=== PATIENT | female | born 1990 | race Caucasian/White ===

== ENCOUNTER 2021-05-29 01:49 | Inpatient (IN) | payer MEDICAID ==
[2021-05-29] VITALS (10 sets, daily range): BP systolic 99–129; BP diastolic 55–65
[~2021-05-29] VITALS: Ht 170.2 cm; Wt 95.4 kg
[2021-05-29] MEDS ORDERED: LIDOCAINE 1% MDV 20ML VIAL INFIL PRN (01:55)
[2021-05-29] MEDS ORDERED: AZITHROMYCIN 250MG TABLET PO ONE (01:55)
[2021-05-29] MEDS ORDERED: diphenhydrAMINE 25MG CAP PO PRN (01:55)
[2021-05-29] MEDS ORDERED: METHYLERGONOVINE MALEATE 0.2 MG/ML VIAL (J2210) IM PRN (01:55)
[2021-05-29] MEDS ORDERED: ONDANSETRON 4MG/2ML VIAL IV PRN (01:55)
[2021-05-29] MEDS ORDERED: OXYTOCIN DRIP 30 UNITS in IV 1 EA IV PRN (01:55)
--- OUTSIDE RECORDS SUMMARY | 2021-05-29 02:07 | CCD ---
Author Author [facility] Organization [facility] Address Unknown Phone Unavailable Care Team Providers Care Guide Foreign Tour Name Role Phone DICOBY, TEDDY DO Unavailable Unavailable DICOBY, TEDDY DO Unavailable Unavailable DICOBY, TEDDY DO Unavailable Unavailable DICOBY, TEDDY DO Unavailable Unavailable DICOBY, TEDDY DO Unavailable Unavailable DICOBY, TEDDY DO Unavailable Unavailable DICOBY, TEDDY DO Unavailable Unavailable DICOBY, TEDDY DO Unavailable Unavailable DICOBY, TEDDY DO Unavailable Unavailable DICOBY, TEDDY DO Unavailable Unavailable DICOBY, TEDDY DO Unavailable Unavailable DICOBY, TEDDY DO Unavailable Unavailable DICOBY, TEDDY DO Unavailable Unavailable DICOBY, TEDDY DO Unavailable Unavailable DICOBY, TEDDY DO Unavailable Unavailable DICOBY, TEDDY DO Unavailable Unavailable DICOBY, TEDDY DO Unavailable Unavailable DICOBY, TEDDY DO Unavailable Unavailable DICOBY, TEDDY DO Unavailable Unavailable DICOBY, TEDDY DO Unavailable Unavailable DICOBY, TEDDY DO Unavailable Unavailable Gagner, CNM E Alida Unavailable [phone] Gagner, CNM E Alida Unavailable [phone] Gagner, CNM E Alida Unavailable [phone] Gagner, CNM E Alida Unavailable [phone] Gagner, CNM E Alida Unavailable [phone] PHI aMnrique Unavailable Unavailable O'Olamide, Chemo MD Unavailable Unavailable LINO STRAUSS MD Unavailable Unavailable LINO STRAUSS MD Unavailable Unavailable LINO STRAUSS MD Unavailable Unavailable LINO STRAUSS MD Unavailable Unavailable LINO STRAUSS MD Unavailable Unavailable LINO STRAUSS MD Unavailable Unavailable LINO STRAUSS MD Unavailable Unavailable LINO STRAUSS MD Unavailable Unavailable LINO STRAUSS MD Unavailable Unavailable LINO STRAUSS MD Unavailable Unavailable LINO STRAUSS MD Unavailable Unavailable LINO STRAUSS MD Unavailable Unavailable LINO STRAUSS MD Unavailable Unavailable LINO STRAUSS MD Unavailable Unavailable LINO STRAUSS MD Unavailable Unavailable LINO STRAUSS MD Unavailable Unavailable LINO STRAUSS MD Unavailable Unavailable LINO STRAUSS MD Unavailable Unavailable LINO STRAUSS MD Unavailable Unavailable LINO STRAUSS MD Unavailable Unavailable MICHELLE HOLLINS MD Unavailable Unavailable HOLLINS, MICHELLE MD Unavailable Unavailable HOLLINSMICHELLE MD Unavailable Unavailable HOLLINSMICHELLE MD Unavailable Unavailable HOLLINS, MICHELLE MD Unavailable Unavailable HOLLINS, MICHELLE MD Unavailable Unavailable HOLLINS, MICHELLE MD Unavailable Unavailable HOLLINS, MICHELLE MD Unavailable Unavailable HOLLINS, MICHELLE MD Unavailable Unavailable HOLLINS, MICHELLE MD Unavailable Unavailable HOLLINS, MICHELLE MD Unavailable Unavailable HOLLINS, MICHELLE MD Unavailable Unavailable HOLLINS, MICHELLE MD Unavailable Unavailable HOLLINS, MICHELLE MD Unavailable Unavailable HOLLINS, MICHELLE MD Unavailable Unavailable Grimshaw, Maggie Unavailable Unavailable Grimshaw, Maggie Unavailable Unavailable Grimshaw, Maggie Unavailable Unavailable Grimshaw, Maggie Unavailable Unavailable Grimshaw, Maggie Unavailable Unavailable Grimshaw, Maggie Unavailable Unavailable Grimshaw, Maggie Unavailable Unavailable Grimshaw, Maggie Unavailable Unavailable Grimshaw, Maggie Unavailable Unavailable Grimshaw, Maggie Unavailable Unavailable Grimshaw, Maggie Unavailable Unavailable Grimshaw, Maggie Unavailable Unavailable Grimshaw, Maggie Unavailable Unavailable Grimshaw, Maggie Unavailable Unavailable Grimshaw, Maggie Unavailable Unavailable Grimshaw, Maggie Unavailable Unavailable Grimshaw, Maggie Unavailable Unavailable Grimshaw, Maggie Unavailable Unavailable Grimshaw, Maggie Unavailable Unavailable Grimshaw, Maggie Unavailable Unavailable Grimshaw, Maggie Unavailable Unavailable Grimshaw, Maggie Unavailable Unavailable Grimshaw, Maggie Unavailable Unavailable Grimshaw, Maggie Unavailable Unavailable Grimshaw, Maggie Unavailable Unavailable Grimshaw, Maggie Unavailable Unavailable Grimshaw, Maggie Unavailable Unavailable Grimshaw, Maggie Unavailable Unavailable Grimshaw, Maggie Unavailable Unavailable Grimshaw, Maggie Unavailable Unavailable Grimshaw, Maggie Unavailable Unavailable Grimshaw, Maggie Unavailable Unavailable Grimshaw, Maggie Unavailable Unavailable Grimshaw, Maggie Unavailable Unavailable ERIC ISFABRICE FRIAS MD Unavailable Unavailable ERIC ISMABRONWYN FRIAS MD Unavailable Unavailable ERIC, ISMAIL LV GRULLON Unavailable Unavailable ERIC ISMAIL LV GRULLON Unavailable Unavailable LETICIAAH, ISMAIL LV GRULLON Unavailable Unavailable LETICIAAH, ISMAIL VL GRULLON Unavailable Unavailable LETICIAAH, ISMAIL LV GRULLON Unavailable Unavailable ERIC, ISMAIL LV GRULLON Unavailable Unavailable ERIC, ISMAIL LV GRULLON Unavailable Unavailable ERIC ISMAIL LV GRULLON Unavailable Unavailable ERIC ISMAIL LV GRULLON Unavailable Unavailable ERIC, ISMAIL LV GRULLON Unavailable Unavailable POLNIAK, OLGA ENGINE LATHE OPERATOR Unavailable Unavailable POLNIAK, OLGA ENGINE LATHE OPERATOR Unavailable Unavailable POLNIAK, OLGA ENGINE LATHE OPERATOR Unavailable Unavailable POLNIAK, OLGA ENGINE LATHE OPERATOR Unavailable Unavailable POLNIAK, OLGA ENGINE LATHE OPERATOR Unavailable Unavailable POLNIAK, OLGA ENGINE LATHE OPERATOR Unavailable Unavailable POLNIAK, OLGA ENGINE LATHE OPERATOR Unavailable Unavailable POLNIAK, OLGA ENGINE LATHE OPERATOR Unavailable Unavailable POLNIAK, OLGA ENGINE LATHE OPERATOR Unavailable Unavailable POLNIAK, OLGA ENGINE LATHE OPERATOR Unavailable Unavailable POLNIAK, OLGA ENGINE LATHE OPERATOR Unavailable Unavailable POLNIAK, OLGA ENGINE LATHE OPERATOR Unavailable Unavailable POLNIAK, OLGA ENGINE LATHE OPERATOR Unavailable Unavailable POLNIAK, OLGA ENGINE LATHE OPERATOR Unavailable Unavailable POLNIAK, OLGA ENGINE LATHE OPERATOR Unavailable Unavailable POLNIAK, OLGA ENGINE LATHE OPERATOR Unavailable Unavailable Mireya Bui MD Unavailable Unavailable Mireya Bui MD Unavailable Unavailable Mireya Bui MD Unavailable Unavailable Mireya Bui MD Unavailable Unavailable Mireya Bui MD Unavailable Unavailable Mireya Bui MD Unavailable Unavailable Mireya Bui MD Unavailable Unavailable Mireya Bui MD Unavailable Unavailable Mireya Bui MD Unavailable Unavailable Mireya Bui MD Unavailable Unavailable Mireya Bui MD Unavailable Unavailable Mireya Bui MD Unavailable Unavailable Mireya Bui MD Unavailable Unavailable Mireya Bui MD Unavailable Unavailable Leykin, Douglas DO Unavailable Unavailable Sienkiewycz, L Marj ENGINE LATHE OPERATOR Unavailable Unavailable Sienkiewycz, L Marj ENGINE LATHE OPERATOR Unavailable Unavailable Sienkiewycz, L Marj ENGINE LATHE OPERATOR Unavailable Unavailable Sienkiewycz, L Marj ENGINE LATHE OPERATOR Unavailable Unavailable Sienkiewycz, L Marj ENGINE LATHE OPERATOR Unavailable Unavailable Sienkiewycz, L Marj ENGINE LATHE OPERATOR Unavailable Unavailable Sienkiewycz, L Marj ENGINE LATHE OPERATOR Unavailable Unavailable Glo Vogel M.D. Unavailable Unavailable Thalia Robbins Unavailable Unavailable Thalia Robbins Unavailable Unavailable Thalia Robbins Unavailable Unavailable Chemo Benz MD Unavailable [phone] Chemo Benz MD Unavailable [phone] Chemo Bezn MD Unavailable [phone] Chemo Benz MD Unavailable [phone] Chemo Benz MD Unavailable [phone] Chemo Benz MD Unavailable [phone] Chemo Benz MD Unavailable [phone] Chemo Benz MD Unavailable [phone] Hanane MÉNDEZ MD Unavailable Unavailable DEVHanane BACA MD Unavailable Unavailable DEVHanane BACA MD Unavailable Unavailable DEVHanane BACA MD Unavailable Unavailable DEVHanane BACA MD Unavailable Unavailable DEVHanane BACA MD Unavailable Unavailable DEVHanane BACA MD Unavailable Unavailable DEVHanane BACA MD Unavailable Unavailable DEVHanane BACA MD Unavailable Unavailable DEVHanane BACA MD Unavailable Unavailable DEVHanane BACA MD Unavailable Unavailable DEVHanane BACA MD Unavailable Unavailable DEVHanane BACA MD Unavailable Unavailable DEVHanane BACA MD Unavailable Unavailable DEVHanane BACA MD Unavailable Unavailable DEVHanane BACA MD Unavailable Unavailable DEVHanane BACA MD Unavailable Unavailable DEVHanane BACA MD Unavailable Unavailable DEVHanane BACA MD Unavailable Unavailable DEVHanane BACA MD Unavailable Unavailable DEVHanane BACA MD Unavailable Unavailable DEVHanane BACA MD Unavailable Unavailable DEVHanane BACA MD Unavailable Unavailable BROUGHAL, C JUNIOR PA Unavailable Unavailable BROUGHAL, C JUNIOR PA Unavailable Unavailable BROUGHAL, C JUNIOR PA Unavailable Unavailable BROUGHAL, C JUNIOR PA Unavailable Unavailable BROUGHAL, C JUNIOR PA Unavailable Unavailable BROUGHAL, C JUNIOR PA Unavailable Unavailable Miglietta, C Lorenzo PA Unavailable Unavailable Miglietta, C Lorenzo PA Unavailable Unavailable Miglietta, C Lorenzo PA Unavailable Unavailable LemayrainNikkyl DO Unavailable Unavailable Re-disclosure Warning The records that you are about to access may contain information from federally-assisted alcohol or drug abuse programs. If such information is present, then the following federally mandated warning applies: This information has been disclosed to you from records protected by federal confidentiality rules (42 CFR part 2). The federal rules prohibit you from making any further disclosure of this information unless further disclosure is expressly permitted by the written consent of the person to whom it pertains or as otherwise permitted by 42 CFR part 2. A general authorization for the release of medical or other information is NOT sufficient for this purpose. The Federal rules restrict any use of the information to criminally investigate or prosecute any alcohol or drug abuse patient.The records that you are about to access may contain highly sensitive health information, the redisclosure of which is protected by Article 27-F of the [facility] Public Health law. If you continue you may have access to information: Regarding HIV / AIDS; Provided by facilities licensed or operated by the [facility] Office of Mental Health; or Provided by the [facility] Office for People With Developmental Disabilities. If such information is present, then the following [facility] mandated warning applies: This information has been disclosed to you from confidential records which are protected by state law. State law prohibits you from making any further disclosure of this information without the specific written consent of the person to whom it pertains, or as otherwise permitted by law. Any unauthorized further disclosure in violation of state law may result in a fine or care home sentence or both. A general authorization for the release of medical or other information is NOT sufficient authorization for further disc losure. Allergies and Adverse Reactions Type Description Substance Reaction Status Data Source(s ) Drug allergy Drug allergy hydromorphone (From Dilaudid) Vomit [facility] Family History Family Member Name Family Member Gender Family Member Status Date o f Status Description Data Source(s) Unknown Male Problem MEDENT (Cristiane Olvera MD) Encounters Encounter Providers Location Date Indications Data Source(s ) Inpatient Attender: LINO STRAUSS MDAdmitter: LINO STRAUSS MD CPSCAORT-OB 05/28/2021 08:37:00 PM EST [facility] Patient admitted. Outpatient Attender: LV REYES MD CPSCAJORGE-CPSLAOBG 08:34:00 AM EST - 05/14/2021 08:35:00 AM EST [facility] Patient discharged. Outpatient Attender: LINO NAYLORCAORT-OBOUT 2020 08:51:00 AM EDT - 05/03/2021 08:52:00 AM EDT T [facility] NST Patient discharged. Outpatient Attender: LV REYES MD CPSLEWIS-CPSLAOBG 10:22:00 AM EDT - 04/28/2021 10:23:00 AM EDT [facility] Patient discharged. Outpatient Attender: LV REYES MD CPSCAORT-LABPD 04/03 09:24:00 AM EDT - 04/21/2021 09:25:00 AM EDT Z98.891; O26.22; Z87.51; O09.899 [facility] Z98.891; O26.22; Z87.51; O09.899 Patient discharged. Outpatient Attender: LV REYES MD CPSCAJORGE-OBOUT 04/02 10:16:00 AM EDT - 04/20/2021 10:17:00 AM EDT T [facility] NST Patient discharged. Outpatient Attender: LV NAYLORCAJORGE-LABPD 01/2021 12:49:00 PM EDT - 04/09/2021 12:50:00 PM EDT GLUCOSE MONITORING [facility] GLUCOSE MONITORING Patient discharged. Outpatient Attender: LV NAYLORCAJORGE-CPSLAOBG 09:55:00 AM EDT - 04[facility]07[facility] Attender: TEDDY PATRICIA DO CPSCAORT-OBOUT 03/04 03:47:00 PM EDT - 03/30/2021 03:48:00 PM EDT NST [facility] NST Patient discharged. Outpatient Attender: KIKO Garcia CPSCAORT-CPSLAOBG 01:32:00 PM EDT - 03/23/2021 01:33:00 PM EDT [facility] Patient discharged. Outpatient Attender: LV REYES MD CPSCAORT-IMAPD 03/03 11:55:00 AM EDT - 03/19/2021 11:56:00 AM EDT FOLLOW UP [facility] FOLLOW UP Patient discharged. Outpatient Attender: MICHELLE HOLLINS MD SURG-NPLAB 03/09/2021 01:49:00 PM EDT [facility]. Outpatient Attender: LV REYES MD CPSCAORT-CPSLAOBG 10:35:00 AM EDT - 03/02/2021 10:36:00 AM EDT Z3A.20, Z87.51, O09.899, Z98.891, N96, K21.9 [facility] Z3A.20, Z87.51, O09.899, Z98.891, N96, K 21.9 Patient discharged. Outpatient Attender: LV REYES MD CPSCAJORGE-IMAPArturo 02/01 04:50:00 PM EDT - 02/19/2021 04:51:00 PM EDT ANATOMY [facility] ANATOMY Patient discharged. Outpatient Attender: LV REYES MD CPSCAORT-CPSLAOBG 01:59:00 PM EDT - 02/02/2021 02:00:00 PM EDT O21.9,Z87.51,O09.899,Z98.891,N96,K21.9 [facility] O21.9,Z87.51,O09.899,Z98.891,N96,K21.9 Patient discharged. Outpatient Attender: LV KELLEY-CPSLAOBG 02:32:00 PM EDT - 01/05/2021 02:33:00 PM EDT O20.0,Z87.51,O09.899,Z13.79 [facility] O20.0,Z87.51,O09.899,Z13.79 Patient discharged. Outpatient Attender: LV KELLEY-CPSLAOBG 07:54:00 AM EDT - 12/18/2020 07:55:00 AM EDT TAB,O20.0,Z3A.09,Z87.51,O09.899,Z98.891 [facility] TAB,O20.0,Z3A.09,Z87.51,O09.899,Z98.891 Patient discharged. Outpatient Attender: LV KELLEY-CPSLAOBG 01:48:00 PM EDT - 12/15/2020 01:49:00 PM EDT [facility] Patient discharged. Outpatient Attender: OLGA KELLEY-IMAPD 08/2020 04:54:00 PM EDT - 12/03/2020 04:55:00 PM EDT DATING & VIABILITY [facility] DATING & VIABILITY Patient discharged. Outpatient Attender: Maggie KELLEY-CPSLAPCP 08/2020 01:53:00 PM EDT - 12/03/2020 01:54:00 PM EDT [facility] Patient discharged. Outpatient Attender: LV KELLEY-LABLAW 11/01 09:38:00 AM EDT - 11/26/2020 09:39:00 AM EDT N91.2 [facility] N91.2 Patient discharged. Emergency Attender: Maricel Vogel M.D. SURG-ER 0 11/19/2020 06:13:00 PM EDT - 11/19/2020 08:40:00 PM EDT [facility] Emergency Attender: Maricel Vogel M.D. SURG-ER 11/19/2020 06:13 :00 PM EDT [facility] Patient discharged. Outpatient Attender: PHI Dodd: OLGA URBINA NP CPSCAORT-CPSLAOBG 11/18/2020 11:23:00 AM EDT - 11/18/2020 11:24:00 AM ED T Z3A.01 [facility] Z3A.01 Patient discharged. Outpatient Attender: LV PIERRELAB 10/31 08:44:00 AM EDT - 11/11/2020 08:45:00 AM EDT N91.2 [facility] N91.2 Patient discharged. Outpatient Attender: LV THORNE 10/31 09:52:00 AM EDT - 11/09/2020 09:53:00 AM EDT N91.2 [facility] N91.2 Patient discharged. Outpatient Attender: LV REYES MD CPSCAJORGE-CPSLAOBG 10:53:00 AM EDT - 10/16/2020 10:54:00 AM EDT [facility] Patient discharged. Outpatient Attender: Deirdre ORO CPSCAORT-CPSLAUCC 01:09:00 PM EDT - 10/06/2020 01:10:00 PM EDT R10.9 [facility] R10.9 Patient discharged. Outpatient Attender: PHI Dodd: OLGA URBINA NP CPSCAORT-CPSLAOBG 08/21/2020 01:43:00 PM EST - 08/21/2020 01:44:00 PM EST Z11. 3 [facility] Z11.3 Patient discharged. Outpatient Attender: Chemo Benz MDAttender: Iam Benz MD CPSCAORT-CPSLAOBG 07/07/2020 02:07:00 PM EST - 07/07/2020 02:08:00 PM EST A64 [facility] A64 Patient discharged. Outpatient Attender: LV REYES MD CPSCAORT-LABLAW 06/04 01:02:00 PM EST - 07/01/2020 01:03:00 PM EST R30.0 [facility] R30.0 Patient discharged. Preadmit Attender: JUNIOR ORO CPSCAORT-LABCOVLAW 1 08/07/2019 12:00:00 AM EST PRE OP [facility] PRE OP Outpatient Attender: LV REYES MD CPSCAORT-CPSLAOBG 02:11:00 PM EST [facility] Outpatient Attender: PHI Dodd: OLGA URBINA NP CPSCAORT-CPSLAOBG 05/01/2020 02:56:00 PM EDT [facility] Outpatient Attender: PHI Dodd: OLGA URBINA NP CPSCAORT-LABLAW 05/01/2020 12:35:00 PM EDT N92.1 [facility] N92.1 Outpatient Attender: OLGA URBINA NP CPSCAORT-IMALAW 04/04 11:30:00 AM EDT MENORRHAGIA [facility] MENORRHAGIA Outpatient Attender: Jae NAYLORCAORT-CPSCADER 0 04:37:00 PM EDT - 04/07/2020 04:38:00 PM EDT [facility] Patient discharged. Outpatient Attender: OLGA URBINA NP CPSCAORT-CPSLAOBG 09:30:00 AM EDT - 03/16/2020 09:31:[facility] Emergency Attender: Lorenzo Valles: Douglas Elder DOAttender: Douglas Elder DO CPSCAORT-ED 11/05/2019 12:22:00 PM EDT - 11/05/2019 02:42:00 PM EDT ABDOMINAL PAIN [facility] ABDOMINAL PAIN Patient discharged. Outpatient Attender: Marj FRIASKC-WALK.LSS 04/05/2017 01:47:00 PM EDT [facility]. Outpatient Attender: CLARENCE MÉNDEZ MD CPSCAORT-LABPNP 06/10 02:48:00 PM EST - 06/10/2015 02:49:00 PM EST [facility] Medications No Information Insurance Providers Payer name Policy type / Coverage type Policy ID Covered republican ID Covered republican's relationship to perdomo Policy Perdomo Plan Information [employer] MEDICAID MANAGED [facility] [id number] SP [id number] [facility] MEDICAID MANAGED CARE [id number] SP [id number] [facility] MEDICAID MANAGED CARE [id number] SP [id number] [employer] [employer] MANAGED CARE [id number] SP [id number] [facility] [id number] Unemployed [id number] [facility] MEDICAID [id number] SP [id number] U [employer] [place] [employer] 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 Self [id number] [place] [id number] Self [id number] [employer] [id number] SP [id number] [facility] MEDICAID [id number] SP [id number] U SELF PAY [id number] SP [id number] [facility] MEDICAID [id number] SP [id number] SELF PAY UNAVAILABLE SP UNAVAILA BLE MEDICAID [id number] Unemployed [id number] MEDICAID [id number] Unemployed [id number] [facility] [id number] Unemployed [id number] [employer] [id number] SP [id number] Problems, Conditions, and Diagnoses Code Display Name Description Problem Type Effective Dates Data Source(s) Z3A.25 25 weeks gestation of 25 WEEKS GESTATI ON OF Diagnosis 04/07/2021 09:55:00 AM EDT [facility] O26.22 care for patient w ith recurrent loss, second trimester PREG CARE FOR PATIENT W RECUR PREG LOSS, SECOND TRIMESTER Di agnosis 04/07/2021 09:55:00 AM [facility] O09.892 Supervision of other high risk pregnanci es, second trimester SUPERVISION OF OTHER HIGH RISK PREGNANCIES, SECOND TRIMESTER Diagnosis 04/07 09:55:00 AM [facility] Z3A.24 24 weeks gestation of 24 WEEKS GESTATI ON OF Diagnosis 03/30/2021 03:47:00 PM [facility] O26.892 Other specified related condit ions, second trimester OTH RELATED CONDITIONS, SECOND TRIMESTER Diagnosis 021 03:47:00 PM [facility] Z3A.23 23 weeks gestation of 23 WEEKS GESTATI ON OF Diagnosis 03/23/2021 01:32:00 PM [facility] K21.9 Gastro-esophageal reflux disease without esophagitis GASTRO-ESOPHAGEAL REFLUX DISEASE WITHOUT ESOPHAGITIS Diagnosis 03/02/2021 10:35:00 AM [facility] Z98.891 History of uterine scar from previous queen rgery HISTORY OF UTERINE SCAR FROM PREVIOUS SURGERY Diagnosis 03/02/2021 10:35:00 AM [facility] Z87.51 Personal history of pre-term labor PERSONAL HIST ORY OF PRE-TERM LABOR Diagnosis 03/02/2021 10:35:00 AM [facility] Z3A.20 20 weeks gestation of 20 WEEKS GESTATI ON OF Diagnosis 03/02/2021 10:35:00 AM [facility] O09.899 Supervision of other high risk pregnanci es, unspecified trimester SUPERVISION OF OTHER HIGH RISK PREGNANCIES, UNSP TRIMESTER Diagnosis 03/02/2021 10:35:00 AM [facility] 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 02/02/2021 01:59:00 PM [facility] O21.9 Vomiting of , unspecified VOMITING OF P REGNANCY, UNSPECIFIED Diagnosis 02/02/2021 01:59:00 PM [facility] Z3A.12 12 weeks gestation of 12 WEEKS GESTATI ON OF Diagnosis 01/05/2021 02:32:00 PM [facility] Z13.79 Encounter for other screening for geneti c and chromosomal anomalies [facility] SCREEN[facility] FOR GENETIC AND CHROMSOML ANOMALIES Diagnosis 01/05/2021 02:32:00 PM [facility] O20.0 Threatened THREATENED Diagnosis 0 01/05/2021 02:32:00 PM [facility] Z3A.09 9 weeks gestation of 9 WEEKS GESTATION OF [place] EGNANCY Diagnosis 12/18/2020 07:54:00 AM [facility] R79.89 Other specified abnormal findings of blo od chemistry OTHER SPECIFIED ABNORMAL FINDINGS OF BLOOD CHEMISTRY Diagnosis 12/15/2020 01:48:00 PM [facility] Z3A.31 31 weeks gestation of 31 WEEKS GESTATI ON OF Diagnosis 12/15/2020 01:48:00 PM [facility] Z33.1 state, incidental STATE, INCIDENTAL Diagnosis 12/03/2020 01:53:00 PM [facility] K86.9 Disease of pancreas, unspecified DISEASE OF PANC REAS, UNSPECIFIED Diagnosis 12/03/2020 01:53:00 PM [facility] Z3A.01 Less than 8 weeks gestation of LESS THAN 8 WEEKS GESTATION OF Diagnosis 11/18/2020 11:23:00 AM [facility] Z32.01 Encounter for test, result pos itive ENCOUNTER FOR TEST, RESULT POSITIVE Diagnosis 11/18/2020 11:23:00 AM [facility] N91.2 Amenorrhea, unspecified AMENORRHEA, UNSPECIFIED Diagno sis 11/18/2020 11:23:00 AM [facility] N97.9 Female infertility, unspecified FEMALE INFERTILITY, UN SPECIFIED Diagnosis 10/16/2020 10:53:00 AM [facility] N30.90 Cystitis, unspecified without hematuria CYSTITIS, UNSPECIFIED WITHOUT HEMATURIA Diagnosis 10/06/2020 01:09:00 PM [facility] R10.9 Unspecified abdominal pain UNSPECIFIED ABDOMINAL PAIN Diagnosis 10/06/2020 01:09:00 PM [facility] R30.0 Dysuria DYSURIA Diagnosis 05/04/2020 02:11:00 PM ES T [facility] N30.00 Acute cystitis without hematuria ACUTE CYSTITIS WITHOUT HEMATURIA Diagnosis 05/04/2020 02:11:00 PM EST [facility] N92.1 Excessive and frequent menstruation with irregular cycle EXCESSIVE AND FREQUENT MENSTRUATION WITH IRREGULAR CYCLE Diagnosis 05/01/2020 12:35: 00 PM [facility] Surgeries/Procedures Procedure Description Date Indications Data Source(s) OFFICE OUTPATIENT VISIT 10 MINUTES OFFICE/OUTPATIENT VISIT E ST 04/07/2021 12:00:00 AM [facility] OFFICE OUTPATIENT VISIT 5 MINUTES OFFICE/OUTPATIENT VISIT ES T 03/02/2021 12:00:00 AM [facility] URINALYSIS MICROSCOPIC ONLY MICROSCOPIC EXAM OF URINE 2020 12:00:00 AM [facility] CUL PRSMPTV PTHGNC ORGANISM SCRN W/COLONY ESTIMJ CULTURE SCR EEN ONLY 02/02/2021 12:00:00 AM [facility] SUSCEPTIBLTY STDY ANTIMICRBIAL MICRO/AGAR DILUTJ MICROBE DEIRDRE CEPTIBLE SANDRA 02/02/2021 12:00:00 AM [facility] COLLECTION VENOUS BLOOD VENIPUNCTURE ROUTINE VENIPUNCTURE 12:00:00 AM [facility] US PREG UTERUS REAL TIME W/IMAGE DCMTN TRANSVAG TRANSVAGINAL US OBSTETRIC 12/18/2020 12:00:00 AM [facility] URINE TEST VISUAL COLOR CMPRSN METHS URINE PREGNAN CY TEST 11/18/2020 12:00:00 AM [facility] URNLS DIP STICK/TABLET RGNT NON-AUTO W/O MICRSCP URINALYSIS NONAUTO W/O SCOPE 11/18/2020 12:00:00 AM [facility] BLOOD TYPING ABO BLOOD TYPING SEROLOGIC ABO 11/18/2020 12:00:00 AM [facility] ANTIBODY SCREEN RBC EACH SERUM TECHNIQUE RBC ANTIBODY SCREEN 11/18/2020 12:00:00 AM [facility] IADNA NEISSERIA GONORRHOEAE AMPLIFIED PROBE TQ N.GONORRHOEAE DNA AMP PROB 11/18/2020 12:00:00 AM [facility] IADNA CHLAMYDIA TRACHOMATIS AMPLIFIED PROBE TQ CHYLMD TRACH DNA AMP PROBE 11/18/2020 12:00:00 AM [facility] LEAD ASSAY OF LEAD 11/18/2020 12:00:00 AM [facility] ANTIBODY VARICELLA-ZOSTER VARICELLA-ZOSTER ANTIBODY 11/18/2020 1 2:00:00 AM [facility] THYROID STIMULATING HORMONE TSH ASSAY THYROID STIM HORMONE 0 11/18/2020 12:00:00 AM [facility] ANTIBODY TOXOPLASMA IGM TOXOPLASMA ANTIBODY IGM 11/18/2020 12:00:00 AM [facility] IAAD EIA HEPATITIS B SURFACE ANTIGEN HEPATITIS B SURFACE AG IA 11/18/2020 12:00:00 AM [facility] [address] DRUG TEST PRSMV CHEM ANLYZR 11/18/2020 12:00:00 AM [facility] ANTIBODY TREPONEMA PALLIDUM TREPONEMA PALLIDUM 11/18/2020 12:00:00 AM [facility] IAAD EIA HIV-1 AG W/HIV-1&HIV-2 ANTBDY SINGLE HIV-1 AG W/HIV -1 & HIV-2 AB 11/18/2020 12:00:00 AM [facility] ANTIBODY RUBELLA RUBELLA ANTIBODY 11/18/2020 12:00:00 AM [facility] HEPATITIS C ANTIBODY HEPATITIS C AB TEST 11/18/2020 12:00:00 AM [facility] HEMOGLOBIN GLYCOSYLATED A1C GLYCOSYLATED HEMOGLOBIN TEST 12:00:00 AM [facility] [address] DRUG SCREEN QUANTALCOHOLS 11/18/2020 12:00:00 AM [facility] GONADOTROPIN CHORIONIC QUANTITATIVE CHORIONIC GONADOTROPIN T EST 11/18/2020 12:00:00 AM [facility] PROGESTERONE ASSAY OF PROGESTERONE 11/18/2020 12:00:00 AM [facility] CULTURE BACTERIAL QUANTTATIVE COLONY COUNT URINE URINE CULTU RE/COLONY COUNT 10/06/2020 12:00:00 AM [facility] ULTRASOUND TRANSVAGINAL TRANSVAGINAL US NON-OB 05/01/2020 12:00:00 AM EDT [facility] Results ID Date Data Source [id number] 05/28/2021 10:36:00 PM [facility] Negative results should be treated as pr esumptive and, if inconsistent with clinical signs and symptoms or necessary for patient management, should be tested with different authorized or cleared molecular tests. Negative results do not preclude SARS-CoV-2 infection and should not be used as the sole basis for patient management decisions. Negative results should be considered in the context of a patients recent exposures, history and the presence of clinical signs and symptoms consistent with COVID-19. This test has not been FDA cleared or approved; this test has been authorized by FDA under an Emergency Use Authorization for use by laboratories certified under the Clinical Laboratory Improvement Amendments of 1988 (CLIA), 42 U.S.C. 263a, to perform moderate complexity/high complexity tests and at the Point of Care (POC), i.e., in patient care settings operating under a CLIA Certificate of Waiver, Certificate of Compliance, or Certificate of Accreditation. Factsheets for healthcare providers: https://www.fda.gov/media/083829/download Factsheets for patients: https://www.fda.gov/media/238598/download The ID NOW Instrument is a rapid molecular in vitro diagnostic test utilizing an isothermal nucleic acid amplification technology intended for the qualitative detection of nucleic acid from the SARS-CoV-2 viral RNA. THIS IS A STATE REPORTABLE COMMUNICABLE DISEASE. Manual entry verified by Susan Roy 05/28/21 2236 Test Performed By: [facility] [address] [place] [address] Director: Adriana Johnston MD Name Value Range Interpretation Code Description Data Yun rce(s) Supporting Document(s) ID Date Data Source [id number] 05/28/2021 09:54:00 PM [facility] Name Value Range Interpretation Code Description Data Yun rce(s) Supporting Document(s) White Blood Count 4.8-10.8 Normal (applies to non-numeri c results) [facility] Red Blood Count 3.68-5.22 Below low normal [facility] Hemoglobin 11.2-15.[address] [facility] Hematocrit 34.1-44.[address] [facility] Mean Corpuscular Volume 81-99 Normal (applies to non- numeric results) [facility] Mean Corpuscular Hemoglobin 27.0-33.0 Normal (appli es to non-numeric results) [facility] Mean Corpuscular HGB Conc 32.0-36.0 Normal (applies to no n-numeric results) [facility] Red Cell Distribution Width 11.5-14.5 Above high normal [facility] Platelet Count 222 X10 3/uL 130-450 Normal (applies to non-numeric results) [facility] Mean Platelet Volume 9.5-12.7 Below low normal [facility] Imm Grans% (AUTO) 6 % 0-2 Above high normal [facility] Neutrophils % (AUTO) 62 % 40-75 Normal (applies to non-num olu results) [facility] Lymphocytes % (AUTO) 21 % 21-46 Normal (applies to non-num olu results) [facility] Monocytes % (AUTO) 9 % 5-12 Normal (applies to non-numer ic results) [facility] Eosinophils % (AUTO) 1 % 1-5 Normal (applies to non-num olu results) [facility] Basophils % (AUTO) 1 % 0-1 Normal (applies to non-numer ic results) [facility] Imm Grans# (AUTO) 0.0-0.5 Normal (applies to non-numeri c results) [facility] Neutrophils # (AUTO) 1.5-8.1 Normal (applies to non-num olu results) [facility] Lymphocytes # (AUTO) 1.0-3.1 Normal (applies to non-num olu results) [facility] Monocytes # (AUTO) 0.2-1.3 Normal (applies to non-numer ic results) [facility] Eosinophils# (AUTO) 0.0-0.5 Normal (applies to non-nume nicole results) [facility] Basophils # (AUTO) 0.0-0.1 Normal (applies to non-numer ic results) [facility] Slide Reviewed By Normal (applies to non-numeri c results) [facility] Slide has been reviewed and findings con firmed by a technologist/counter intelligence technician. ID Date Data Source [id number] 05/28/2021 09:05:00 PM EST [facility] Name Value Range Interpretation Code Description Data Yun rce(s) Supporting Document(s) Rupture of Membranes Normal (applies to non-num olu results) [facility] Interpretation: Rupture of membranes is indicated. ID Date Data Source [id number] 05/03/2021 11:26:00 AM EDT [facility] Name Value Range Interpretation Code Description Data Yun rce(s) Supporting Document(s) Color,Urine Yellow Normal (applies to non-numeric resu lts) [facility] Clarity,Urine Clear Normal (applies to non-numeric re sults) [facility] Specific [place],Urine 1.001-1.030 Normal (applies to non- numeric results) [facility] PH,Urine 5.0-8.0 Normal (applies to non-numeric resul ts) [facility] Protein,Urine Negative [facility] Glucose,Urine (UA) Negative Normal (applies to non-numer ic results) [facility] Ketones,Urine Negative [facility] Blood,Urine Negative Normal (applies to non-numeric resu lts) [facility] Bilirubin,Urine Negative Normal (applies to non-numeric results) [facility] Urobilinogen,Urine Norm 0.2-1 Normal (applies to non-numer ic results) [facility] Leukocyte Esterase,Urine Negative Normal (applies to non -numeric results) [facility] Nitrite,Urine Negative Normal (applies to non-numeric re sults) [facility] ID Date Data Source [id number] 05/03/2021 11:26:00 AM EDT [facility] Name Value Range Interpretation Code Description Data Yun rce(s) Supporting Document(s) RBC,Auto Urine 0-2 [facility] WBC Urine Auto 0-10 Normal (applies to non-numeric r esults) [facility] Casts,Hyaline,Urine Auto 0-2 Normal (applies to non -numeric results) [facility] Bacteria Urine Auto None Seen Normal (applies to non-nume nicole results) [facility] Epithelial Cell Ur Auto None-Few Normal (applies to non- numeric results) [facility] ID Date Data Source [id number] 05/03/2021 09:44:00 AM EDT [facility] Name Value Range Interpretation Code Description Data Yun rce(s) Supporting Document(s) Rupture of Membranes Normal (applies to non-num olu results) [facility] Interpretation: No membranes ruptured. ID Date Data Source [id number] 05/03/2021 12:25:00 PM EDT [facility] Hospital Name: JAVON SERRANO : 1990 Age/Sex: 30F Ordering Provider: Alida Garica CNM Med Rec #: [id number] Reg Status: [facility] REF Room #: Date of Service: 05/03/21 Report Number: [id number] cc:Alida Garcia CNM Send Report To: [id number] US/US Bio- Physical Profile Reason for exam: rule out labor FINDINGS: Viable IUP with a cephalic lie. ELLIOTT 19.9 cm. Biophysical profile score eight out of eight. Vital weight in the 82nd percentile for age at 1,538 grams. Anterior placenta with no previa. IMPRESSION: Eight out of eight on the biophysical profile score. REPORT SIGNATURE ON FILE Reported By: Pratibha Beaulieu MD Electronically signed by: Pratibha Beaulieu MD 05/04/21 0848 Dictation Date/Time: 05/03/21 1031 Transcribed Date/Time: 05/03/21 1225 [facility] Name Value Range Interpretation Code Description Data Yun rce(s) Supporting Document(s) ID Date Data Source [id number] 05/03/2021 12:22:00 PM EDT [facility] Name: JAVON SERRANO : 1990 Age/Sex: 30F Ordering Provider: Alida Garcia CNM Med Rec #: [id number] Reg Status: REG REF Room #: Date of Service: 05/03/21 Report Number: [id number] cc:Alida Garcia CNM Send Report To: [id number] US/ OB Follow Up Exam Reason for exam: cervical length, efw, placenta FINDINGS: There is a viable IUP with a cephalic lie. Age is 29 weeks plus or minus one week leading to an EDC of 07/03/21. weight 1,538 grams, plus or minus 15% which is in the 82 second percentile for age. Heart rate 144 beats per minute. Cervical length is 3.4 cms. EARLIEST ULT: 7 w 1 d = EDC 07/19/21 EGA = 29 wks 0 days GESTATION: single PRESENTATION: vertex, spine down CERVICAL LENGTH: 37 mm FHR: 149 bpm PLACENTAL LOCATION: anterior ELLIOTT: 19.9 cm MVP 6.77 cm BIOPHYSICAL PROFILE: movements: 2 out of 2 breathin out of 2 tone: 2 out of 2 Amniotic fluid: 2 out of 2 TOTAL 8 out of 8 MEASUREMENTS AND VALUES LISTED BELOW ARE BASED ON TODAY'S EXAM BPD: 75 mm 30 w 3 d +/- 2 d HC: 274 mm 29 w 6 d +/- 2 d AC: 252 mm 29 w 3 d +/-2 d FL: 61 mm 31 w 4 d +/-2 d HC/AC: 1.08 (range .97 - 1.18) CI: 80 (range 70 - 86) EFW: 1538 grams +/- 2.30 g (82%) IMPRESSION: Appropriate interval growth noted. REPORT SIGNATURE ON FILE Reported By: Pratibha Beaulieu MD Electronically signed by: Pratibha Beaulieu MD 05/03/21 8904 Dictation Date/Time: 05/03/21 1031 Transcribed Date/Time: 05/03/21 1222 [facility] Name Value Range Interpretation Code Description Data Yun rce(s) Supporting Document(s) ID Date Data Source [id number] 04/21/2021 07:16:00 PM EDT [facility] Name Value Range Interpretation Code Description Data Yun rce(s) Supporting Document(s) White Blood Count 4.8-10.8 Normal (applies to non-numeri c results) [facility] Red Blood Count 3.68-5.22 Below low normal [facility] Hemoglobin 11.2-15.[address] [facility] Hematocrit 34.1-44.[address] [facility] Mean Corpuscular Volume 81-99 Normal (applies to non- numeric results) [facility] Mean Corpuscular Hemoglobin 27.0-33.0 Normal (appli es to non-numeric results) [facility] Mean Corpuscular HGB Conc 32.0-36.0 Normal (applies to no n-numeric results) [facility] Red Cell Distribution Width 11.5-14.5 Normal (appli es to non-numeric results) [facility] Platelet Count 255 X10 3/uL 130-450 Normal (applies to non-numeric results) [facility] Mean Platelet Volume 9.5-12.7 Normal (applies to non-num olu results) [facility] Imm Grans% (AUTO) 3 % 0-2 Above high normal [facility] Neutrophils % (AUTO) 70 % 40-75 Normal (applies to non-num olu results) [facility] Lymphocytes % (AUTO) 18 % 21-46 Below low normal [facility] Monocytes % (AUTO) 8 % 5-12 Normal (applies to non-numer ic results) [facility] Eosinophils % (AUTO) 1 % 1-5 Normal (applies to non-num olu results) [facility] Basophils % (AUTO) 1 % 0-1 Normal (applies to non-numer ic results) [facility] Imm Grans# (AUTO) 0.0-0.5 Normal (applies to non-numeri c results) [facility] Neutrophils # (AUTO) 1.5-8.1 Normal (applies to non-num olu results) [facility] Lymphocytes # (AUTO) 1.0-3.1 Normal (applies to non-num olu results) [facility] Monocytes # (AUTO) 0.2-1.3 Normal (applies to non-numer ic results) [facility] Eosinophils# (AUTO) 0.0-0.5 Normal (applies to non-nume nicole results) [facility] Basophils # (AUTO) 0.0-0.1 Normal (applies to non-numer ic results) [facility] Slide Reviewed By Normal (applies to non-numeri c results) [facility] Slide has been reviewed and findings con firmed by a technologist/counter intelligence technician. ID Date Data Source [id number] 04/21/2021 12:21:00 PM EDT [facility] Name Value Range Interpretation Code Description Data Yun rce(s) Supporting Document(s) Glucose,1Hr PP 120 Normal (applies to non-numeric r esults) [facility] ID Date Data Source [id number] 04/20/2021 12:51:00 PM EDT [facility] Hospital Name: JAVON SERRANO : 1990 Age/Sex: 30F Ordering Provider: Angeles Gallo CNM Med Rec #: [id number] Reg Status: DEP REF Room #: Date of Service: 04/20/21 Report Number: [id number] cc:Maggie Wilson MD; Angeles Gallo CNM Send Report To: [id number] US/US Transvaginal OB Reason for exam: abdominal pain FINDINGS: EARLIEST ULT: 7w 1d = EDC 07-19-21 EGA = 27 wks 1 day GESTATION: Single. PRESENTATION: Breech. CERVICAL LENGTH: 24.7 mm. There is some mucus within the cervical canal withoutdefinitive funneling. FHR: 147 BPM. PLACENTAL LOCATION: Anterior. No previa. ELLIOTT: 18.96 cm, MVP: 7.6 cm. IMPRESSION: Cervical length 2.47 cm with no definitive funneling. Some mucus present within the cervical canal. REPORT SIGNATURE ON FILE Reported By: Pratibha Beaulieu MD Electronically signed by: Pratibha Beaulieu MD 04/21/21 0848 Dictation Date/Time: 04/20/21 1209 Transcribed Date/Time: 04/20/21 1251 [facility] Name Value Range Interpretation Code Description Data Yun rce(s) Supporting Document(s) ID Date Data Source [id number] 03/31/2021 09:28:00 AM EDT [facility] Name Value Range Interpretation Code Description Data Yun rce(s) Supporting Document(s) Urine Culture Normal (applies to non-numeric re sults) [facility] ID Date Data Source [id number] 03/30/2021 04:42:00 PM EDT [facility] Name Value Range Interpretation Code Description Data Yun rce(s) Supporting Document(s) Color,Urine Yellow Normal (applies to non-numeric resu lts) [facility] Clarity,Urine Clear Normal (applies to non-numeric re sults) [facility] Specific [place],Urine 1.001-1.030 Normal (applies to non- numeric results) [facility] PH,Urine 5.0-8.0 Normal (applies to non-numeric resul ts) [facility] Protein,Urine Negative Normal (applies to non-numeric re sults) [facility] Glucose,Urine (UA) Negative Normal (applies to non-numer ic results) [facility] Ketones,Urine Negative [facility] Blood,Urine Negative Normal (applies to non-numeric resu lts) [facility] Bilirubin,Urine Negative Normal (applies to non-numeric results) [facility] Urobilinogen,Urine Norm 0.2-1 Normal (applies to non-numer ic results) [facility] Leukocyte Esterase,Urine Negative [facility] Nitrite,Urine Negative Normal (applies to non-numeric re sults) [facility] ID Date Data Source [id number] 03/30/2021 04:42:00 PM EDT [facility] Name Value Range Interpretation Code Description Data Yun rce(s) Supporting Document(s) RBC,Auto Urine 0-2 [facility] WBC Urine Auto 0-10 Normal (applies to non-numeric r esults) [facility] Casts,Hyaline,Urine Auto 0-2 Normal (applies to non -numeric results) [facility] Bacteria Urine Auto None Seen Normal (applies to non-nume nicole results) [facility] Epithelial Cell Ur Auto None-Few Normal (applies to non- numeric results) [facility] ID Date Data Source [id number] 03/30/2021 04:30:00 PM EDT [facility] Name Value Range Interpretation Code Description Data Yun rce(s) Supporting Document(s) Rupture of Membranes Normal (applies to non-num olu results) [facility] Interpretation: No membranes ruptured. ID Date Data Source [id number] 03/20/2021 12:56:00 PM EDT [facility] Hospital Name: JAVON DARBY : 1990 A ge/Sex: 30F Ordering Provider: Lv Reyes MD Med Rec #: [id number] Reg Status: [facility] REF Room #: Date of Service: 03/19/21 Report Number: [id number] cc:Maggie Wilson MD; Lv Reyes MD Send Report To: [id number] US/US OB Follow Up Exam Reason for exam: 20 WEEKS GESTATION OF FINDINGS: EARLIEST ULT: 7W 1D = EDC 07/19/21 EGA = 22 wks 4 days GESTATION: Single. PRESENTATION: Breech PLACENTAL LOCATION: Anterior, no previa. CORD INSERTION: Central. CERVICAL LENGTH: 35 mm ANATOMY VISUALIZED: Four chamber heart, right and left ventricular outflow tracts, facial profile, 4D face, diaphragm, kidneys, transverse views ofthe spine as well as sagittal views of the lumbar and sacral spine are visualized and appear unremarkable. FHR: 147 bpm ELLIOTT: 15.1 cm, MVP 5.6 cm. IMPRESS ION: Visualized anatomy appears unremarkable. REPORT DICTATED BY PRATIBHA MICHAELS, REVIEWED AND SIGNED BY DR. BEAULIEU. REPORT SIGNATURE ON FILE Reported By: Pratibha Beaulieu MD Electronically signed by: Pratibha Beaulieu MD 03/22/21 1054 Dictation Date/Time: 03/19/21 1236 Transcribed Date/Time: 03/20/21 1256 [employer] [employer] [facility]: [facility] Name Value Range Interpretation Code Description Data Yun rce(s) Supporting Document(s) ID Date Data Source [id number] 03/09/2021 02:00:00 PM EDT [facility] Name Value Range Interpretation Code Description Data Yun rce(s) Supporting Document(s) SARS-CoV-2 (COVID-19) RNA [Presence] in Respiratory specimen by KATELYN with probe detection Negative [facility] This lab was ordered by [facility] and reported by . ID Date Data Source [id number] 03/04/2021 10:57:00 AM EDT [facility] Name Value Range Interpretation Code Description Data Yun rce(s) Supporting Document(s) Urine Culture [facility] ID Date Data Source [id number] 03/02/2021 07:50:00 PM EDT [facility] Name Value Range Interpretation Code Description Data Yun rce(s) Supporting Document(s) Color,Urine Yellow [facility] Clarity,Urine Clear [facility] Specific [place],Urine 1.001-1.030 Normal (applies to non- numeric results) [facility] PH,Urine 5.0-8.0 Normal (applies to non-numeric resul ts) [facility] Protein,Urine Negative [facility] Glucose,Urine (UA) Negative Normal (applies to non-numer ic results) [facility] Ketones,Urine Negative [facility] Blood,Urine Negative Normal (applies to non-numeric resu lts) [facility] Bilirubin,Urine Negative Normal (applies to non-numeric results) [facility] Urobilinogen,Urine Norm 0.2-1 Normal (applies to non-numer ic results) [facility] Leukocyte Esterase,Urine Negative [facility] Nitrite,Urine Negative Normal (applies to non-numeric re sults) [facility] RBC,Auto Urine 0-2 [facility] WBC Urine Auto 0-10 Normal (applies to non-numeric r esults) [facility] Casts,Hyaline,Urine Auto 0-2 Normal (applies to non -numeric results) [facility] Bacteria Urine Auto None Seen Normal (applies to non-nume nicole results) [facility] Epithelial Cell Ur Auto None-Few Normal (applies to non- numeric results) [facility] ID Date Data Source [id number] 02/20/2021 12:56:00 PM EDT [facility] Name: JAVON DARBY : 1990 A ge/Sex: 30F Ordering Provider: Lv Reyes MD Med Rec #: [id number] Reg Status: DEP REF Room #: Date of Service: 02/19/21 Report Number: [id number] cc:Maggie Wilson MD; Lv Reyes MD Send Report To: [id number] US/US Obstetrical Study Reason for exam: NAUSEA AND VOMITING DURING , HX OF DELIVERY LMP: EDC: Gestational age WKS DAYS Earliest US 7 WKS 1 DAY: EDC:07/19/2021 US AGE 18 WKS 4 DAYS HEART ANATOMY Four chamber: NO Septum: X RVOT: NO LVOT: NO GESTATION Single: X Multiple: CRANIAL ANATOMY Lateral ventricle: 6.1 mm Cerebellum: 19.9 mm Nuchal fold: 3.7 mm Cisterna Magna: 3.5 mm PRESENTATION Vertex: Breech: X Spine up: Spine down: Transverse: Variable: X FACIAL ANATOMY Palate: X Mandible: X Orbits: X Face: X Profile: NO Nose/lips: NO 4D face: NO PLACENTA Cord Insertion: Anterior: X Posterior: Fundal: Previa: NO Left lateral X : Right lateral: Low lying: Marginal: ? Complete: Partial: ABDOMINAL ANATOMY Stomach: X Diaphragm: NO Kidneys: NO Bladder: X Cord insertion: X 3 vc HEART RATE BPM: 150 CERVICAL LENGTH 34.9 mm ELLIOTT Adequate cm MVP cm SPINE TRANSVERSE Cervical: NO Thoracic: NO Lumbar: NO Sacrum/Coccyx: NO SPINE SAGITTAL Cervical: X Thoracic: X Lumbar: NO Sacrum/Coccyx: NO MEASUREMENTS BPD: 42.36 mm 18 w 6 d HC: 156.04 mm 18 w 4 d AC: 132.34 mm 18 w 5 d FL: 30.48 mm 19 w 3 d HL: 30.27 mm 20 w 0 d AVG U/S AGE: 19 w 1 d EDC: 07/15/2021 HC/AC 1.18 Range: 1.09-1.26 CI: 75.76 (range 70-86) EFW 268.82 g+/- 40.32 g= % LEFT EXTREMITIES Hand: X Extended: Fist: Forearm: X Humerus: X Foot: X Tib/Fib: X Fe mur: X RIGHT EXTREMITIES Hand:X Extended: Fist: Forearm: X Humerus: X Foot: X Tib/Fib: X Femur: X IMPRESSION: Single live intrauterine as above. Recommend short termfollow up ultrasound to follow up the missed anatomy. There is marginal previa which can be followed up on the follow up exam. REPORT SIGNATURE ON FILE Reported By: Felipe Ozuna MD Electronically signed by: Felipe Ozuna MD 02/22/21 7448 Dictation Date/Time: 02/19/21 8532 Transcribed Date/Time: 02/20/21 1255 [employer] [facility]: [facility] Name Value Range Interpretation Code Description Data Yun rce(s) Supporting Document(s) ID Date Data Source [id number] 02/04/2021 09:19:00 AM EDT [facility] Name Value Range Interpretation Code Description Data Yun rce(s) Supporting Document(s) Urine Culture [facility] ID Date Data Source [id number] 02/04/2021 09:19:00 AM EDT [facility] Name Value Range Interpretation Code Description Data Yun rce(s) Supporting Document(s) Cefazolin Susceptible. Indicates for microbiol ogy susceptibilities only. [facility] Cefepime Susceptible. Indicates for microbiol ogy susceptibilities only. [facility] Ceftaz[facility]ime Susceptible. Indicates for m icrobiology susceptibilities only. [facility] Ceftriaxone Susceptible. Indicates for m icrobiology susceptibilities only. [facility] Ciprofloxacin Susceptible. Ind icates for microbiology susceptibilities only. [facility] Ertapenem Susceptible. Indicates for microbiol ogy susceptibilities only. [facility] Gentamicin Susceptible. Indicates for microbiol ogy susceptibilities only. [facility] Levofloxacin Susceptible. Indicates for m icrobiology susceptibilities only. [facility] Nitrofurantoin 64 Specimen in lab; results pending [facility] Pipercillin/Tazobactam Susceptib le. Indicates for microbiology susceptibilities only. [facility] Trimeth/Sulfamethoxazole Suscept ible. Indicates for microbiology susceptibilities only. [facility] ID Date Data Source [id number] 02/02/2021 07:32:00 PM EDT [facility] Name Value Range Interpretation Code Description Data Yun rce(s) Supporting Document(s) Color,Urine Yellow Garzon [facility] pital Clarity,Urine Clear Gar[facility] ospital Specific [place],Urine 1.001-1.030 Normal (applies to non- numeric results) [facility] PH,Urine 5.0-8.0 Normal (applies to non-numeric resul ts) [facility] Protein,Urine Negative [facility] ospital Glucose,Urine (UA) Negative Normal (applies to non-numer ic results) [facility] Ketones,Urine Negative [facility] ospital Blood,Urine Negative [facility] pital Bilirubin,Urine Negative Normal (applies to non-numeric results) [facility] Urobilinogen,Urine Norm 0.2-1 Normal (applies to non-numer ic results) [facility] Leukocyte Esterase,Urine Negative [facility] Nitrite,Urine Negative [facility] ospital WBC,URINE 0-10 [facility] timothy RBC,Urine 0-2 [facility] Hyaline Casts,Ur None Seen Normal (applies to non-numeric results) [facility] Bacteria,Urine None Seen [facility] Epithelial Cell,Ur None-Few Normal (applies to non-numer ic results) [facility] Amorphous Sediment,Urine Not Present [facility] ID Date Data Source [id number] 01/13/2021 07:05:00 AM EDT [facility] Name Value Range Interpretation Code Description Data Yun rce(s) Supporting Document(s) Panorama/Horizon kit result Normal (applies to non-numeric results) [facility] ID Date Data Source [id number] 12/19/2020 11:00:00 AM EDT [facility] Name: JAVON DARBY : 1990 A ge/Sex: 30F Ordering Provider: Lv Reyes MD Med Rec #: [id number] Reg Status: [facility] Room #: Date of Service: 12/18/20 Report Number: [id number] cc:Lv Reyes MD Send Report To: [id number] US/ Transvaginal OB Reason for exam: TAB IN FIRST TRIMESTER FINDINGS: LMP: = EDC 07/18/21 EGA = 9 wks 5 days Earliest U/S 7W 1D = EDC 07/21/21 EGA = 9 wks 2 days Gestation: Single. Gestational sac size: 36.7 mm AVERAGE 9 w 0 d [place] Rump Length: 27.5 mm = 9 w 4 d EDC 07/19/21 Heart Rate: 165 bpm Placental Location: Undetermined. Presentation: Undetermined. Regular Shaped Gestational Sac: Yes Adequate Amniotic Fluid: Yes Yolk Sac: Yes Cervical length: 31.7 mm There is a 1.6 x 0.7 x 1.1 cm hypoechoic region adjacent to the sac which could be a small bleed versus fusing chorioamniotic layers. Right ovarian 1.4 x 1.5 cm corpus luteal cyst. IMPRESSION: Viable IUP of 9 weeks 2 days. 1.6 x 0.7 x 1.1 cm subchorionic lucency consistent with a subchorionic bleed versus fusing chorioamniotic layers. REPORT SIGNATURE ON FILE Reported By: Pratibha Beaulieu MD Electronically signed by: Pratibha Beaulieu MD 12/21/20 1101 Dictation Date/Time: 12/18/20 1112 Transcribed Date/Time: 12/19/20 1100 [employer] Internship: [facility] Name Value Range Interpretation Code Description Data Yun rce(s) Supporting Document(s) ID Date Data Source [id number] 12/20/2020 09:20:00 AM EDT [facility] Name Value Range Interpretation Code Description Data Yun rce(s) Supporting Document(s) Urine Culture [facility] ospital ID Date Data Source [id number] 12/20/2020 09:20:00 AM EDT [facility] Name Value Range Interpretation Code Description Data Yun rce(s) Supporting Document(s) Ampicillin Susceptible. Indicates for microbiol ogy susceptibilities only. [facility] Cefazolin Susceptible. Indicates for microbiol ogy susceptibilities only. [facility] Cefepime Susceptible. Indicates for microbiol ogy susceptibilities only. [facility] Ceftazadime Susceptible. Indicates for m icrobiology susceptibilities only. [facility] Ceftriaxone Susceptible. Indicates for m icrobiology susceptibilities only. [facility] Ciprofloxacin Susceptible. Ind icates for microbiology susceptibilities only. [facility] Ertapenem Susceptible. Indicates for microbiol ogy susceptibilities only. [facility] Gentamicin Susceptible. Indicates for microbiol ogy susceptibilities only. [facility] Levofloxacin Susceptible. Indicates for m icrobiology susceptibilities only. [facility] Nitrofurantoin Susceptible. Ind icates for microbiology susceptibilities only. [facility] Pipercillin/Tazobactam Susceptib le. Indicates for microbiology susceptibilities only. [facility] Trimeth/Sulfamethoxazole Suscept ible. Indicates for microbiology susceptibilities only. [facility] ID Date Data Source [id number] 12/18/2020 12:45:00 PM EDT [facility] Name Value Range Interpretation Code Description Data Yun rce(s) Supporting Document(s) Color,Urine Yellow Normal (applies to non-numeric resu lts) [facility] Clarity,Urine Clear [facility] ospital Specific [place],Urine 1.001-1.030 Normal (applies to non- numeric results) [facility] PH,Urine 5.0-8.0 Normal (applies to non-numeric resul ts) [facility] Protein,Urine Negative Normal (applies to non-numeric re sults) [facility] Glucose,Urine (UA) Negative Normal (applies to non-numer ic results) [facility] Ketones,Urine Negative Normal (applies to non-numeric re sults) [facility] Blood,Urine Negative Normal (applies to non-numeric resu lts) [facility] Bilirubin,Urine Negative Normal (applies to non-numeric results) [facility] Urobilinogen,Urine Norm 0.2-1 Normal (applies to non-numer ic results) [facility] Leukocyte Esterase,Urine Negative [facility] Nitrite,Urine Negative Normal (applies to non-numeric re sults) [facility] RBC,Auto Urine 0-2 Normal (applies to non-numeric r esults) [facility] WBC Urine Auto 0-10 Garzon [facility] Casts,Hyaline,Urine Auto 0-2 Normal (applies to non -numeric results) [facility] Bacteria Urine Auto None Seen [facility] Epithelial Cell Ur Auto None-Few Normal (applies to non- numeric results) [facility] ID Date Data Source [id number] 12/07/2020 06:24:00 AM EDT [facility] Name: JAVON DARBY : 1990 A ge/Sex: 30F Ordering Provider: PHI Manrique Med Rec #: [id number] Reg Status: DEP REF Room #: Date of Service: 12/03/20 Report Number: [id number] cc:Lv Reyes MD; PHI Marnique Send Report To: [id number] US/US OB First Trimester Reason for exam: LESS THAN 8 WEEKS GESTATION OF FINDINGS: LMP: 10/11/20 = EDC 07/18/21 EGA = 7 wks 4 days Earliest U/S Today = EDC 07/21/21 EGA = 7 wks 1 days Gestation: Single. Gestational sac size: 34.8 x 13.35 x 21.0 = 23.72 mm AVERAGE 7 w 2 d [place] Rump Length: 10.9 mm = 7 w 1 d EDC 07/21/21 Heart Rate: 157 bpm Regular Shaped Gestational Sac: Yes Adequate Amniotic Fluid: Yes Yolk Sac: Yes Cervical length: 31.41 mm IMPRESSION: Single live intrauterine gestation as described above. REPORT SIGNATURE ON FILE Reported By: Jose Escobar MD <Electronically signed by Jose Escobar MD> 12/07/20 1138 Dictation Date/Time: 12/03/20 1759 Transcribed Date/Time: 12/07/20 0624 [employer]ical [employer] Internship: [facility] Name Value Range Interpretation Code Description Data Yun rce(s) Supporting Document(s) ID Date Data Source [id number] 11/26/2020 12:05:00 PM EDT [facility] Name Value Range Interpretation Code Description Data Yun rce(s) Supporting Document(s) Progesterone Normal (applies to non-numeric res ults) [facility] Progesterone Ranges: Category Range (ng/mL) Normal Females: Follicular Phase 0.21 - 1.70 Luteal Phase 2.25 - 24.20 Mid Luteal Phase 8.76 - 21.60 Post Menopausal Females <2.00 - 0.90 Females: First Trimester 11.40 - 41.0 Second Trimester 13.8 - 156.00 Third Trimester 51.4 - >200.00 ID Date Data Source [id number] 11/26/2020 12:05:00 PM EDT [facility] Name Value Range Interpretation Code Description Data Yun rce(s) Supporting Document(s) Beta HCG,Quantitative 86288 mIU/mL [id number] Normal (ap plies to non-numeric results) [facility] Non- Females (ages 18-62): 1-3 mIU/mL Adult Males (ages 19-67: Less than or equal to 1 mIU/mL Females: Gestational Age: 0-1 Week: 5-50 mIU/mL 1-2 Week: 50-500 mIU/mL 2-3 Weeks: 100-5,000 mIU/mL 3-4 Weeks: 500-10,000 mIU/mL 4-5 Weeks: 1,000- 50,000 mIU/mL 5-6 Weeks: 10,000-100,000 mIU/mL 6-8 Weeks: 15,000- 200,000 mIU/mL 2-3 Months: 10,000-100,000 mIU/mL 2nd Trimester: 3000- 31214 mIU/mL 3rd Trimester: 1000-58999 mIU/ml ID Date Data Source [id number] 11/19/2020 08:41:[address] [facility]. OB ULTRASOUNDFindings: There is an intr auterine gestational sac. Based on mean sacdiameter, the estimated gestational age is 5 weeks and 3 days. There isnormal yolk sas visualized. No pole or heart is visualized.The cervix measures 3.6 cm in length. The right ovary is sonographicallynormal. The left ovary is not well visualized.IMPRESSION: INTRAUTERINE GESTATIONAL SAC NOTED. NO POLE OR FETALHEART RATE IS VISUALIZED. THIS COULD BE AN EARLY GESTATION. RECOMMENDSHORT-TERM FOLLOW-UP ULTRASOUND AND FOLLOW-UP BETA HCG LEVELS.Dictated on 11/19/202040 by Felipe Ozuna M.D.Transcribed on 11/20/20 1128 by Caroline Horne by Felipe Ozuna M.D. on 11/20/20 1228Sign by: Felipe Ozuna M.D. Name Value Range Interpretation Code Description Data Yun rce(s) Supporting Document(s) ID Date Data Source [id number] 11/21/2020 09:11:00 AM EDT [facility] Name Value Range Interpretation Code Description Data Yun rce(s) Supporting Document(s) Urine Culture [facility] ospital ID Date Data Source [id number] 11/21/2020 09:11:00 AM EDT [facility] Name Value Range Interpretation Code Description Data Yun rce(s) Supporting Document(s) Ampicillin Susceptible. Indicates for microbiol ogy susceptibilities only. [facility] Cefazolin Susceptible. Indicates for microbiol ogy susceptibilities only. [facility] Cefepime Susceptible. Indicates for microbiol ogy susceptibilities only. [facility] Ceftazadime Susceptible. Indicates for m icrobiology susceptibilities only. [facility] Ceftriaxone Susceptible. Indicates for m icrobiology susceptibilities only. [facility] Ciprofloxacin Susceptible. Ind icates for microbiology susceptibilities only. [facility] Ertapenem Susceptible. Indicates for microbiol ogy susceptibilities only. [facility] Gentamicin Susceptible. Indicates for microbiol ogy susceptibilities only. [facility] Levofloxacin Susceptible. Indicates for m icrobiology susceptibilities only. [facility] Nitrofurantoin Susceptible. Ind icates for microbiology susceptibilities only. [facility] Pipercillin/Tazobactam Susceptib le. Indicates for microbiology susceptibilities only. [facility] Trimeth/Sulfamethoxazole Suscept ible. Indicates for microbiology susceptibilities only. [facility] ID Date Data Source [id number] 11/20/2020 02:48:00 PM EDT [facility] Name Value Range Interpretation Code Description Data Yun rce(s) Supporting Document(s) Varicella-Zoster IgG Ab,S res See Note No rmal (applies to non-numeric results) [facility] Presence of detectable Varicella Zoster virus IgG antibodies. Test performed or referred by The [address] [address] ID Date Data Source [id number] 11/20/2020 02:48:00 PM EDT [facility] Name Value Range Interpretation Code Description Data Yun rce(s) Supporting Document(s) Amphetamines,UDS7 Ciwyig=7645 Normal (applies to non-numer ic results) [facility] Amphetamine test includes Amphetamine an d Methamphetamine. Barbiturates,UDS7 Keltex=160 Normal (applies to non-numeri c results) [facility] Benzodiazepines,UDS7 Ranljg=647 Normal (applies to non-num olu results) [facility] Cannabinoid,UDS7 Cutoff=50 Normal (applies to non-numeric results) [facility] Cocaine,UDS7 Bsrqqb=105 Normal (applies to non-numeric res ults) [facility] Opiates,UDS7 Lwrvfb=486 Normal (applies to non-numeric res ults) [facility] Opiate test includes Codeine and Morphin e only. Phencyclidine,UDS7 Cutoff=25 Normal (applies to non-numer ic results) [facility] Performed at: RN - [facility] [address] [id number] Site Head: Luda Bowles MD, Phone: [phone] ID Date Data Source [id number] 11/20/2020 02:48:00 PM EDT [facility] Name Value Range Interpretation Code Description Data [facility] rce(s) Supporting Document(s) Toxoplasma Ab,IgM result Negative Normal (applies to non -numeric results) [facility] No IgM antibodies to T. gondii detected. Results may be negative in patients with recent infection or who are significantly immunosuppressed. Test Performed by: [facility] - [address] [address] Site Head: Charly Trejo M.D. Ph.D.; CLIA# [id number] ID Date Data Source [id number] 11/20/2020 01:56:00 PM EDT [facility] Name Value Range Interpretation Code Description Data [facility] rce(s) Supporting Document(s) Chlamydia,Urine Negative Normal (applies to non-numeric results) [facility] GC Urine Negative Normal (applies to non-numeric resul ts) [facility] Methodology: Second generation nucleic a kaylyn amplification. ID Date Data Source [id number] 11/20/2020 09:50:00 AM EDT [facility] Name Value Range Interpretation Code Description Data [facility] Document(s) Lead,Blood (Venous) result <5.0 Normal (applies to n on-numeric results) [facility] ADDITIONAL INFORMATIO N Testing performed by Inductively Coupled Plasma-Mass Spectrometry (ICP-MS). This test was developed and its performance characteristics determined by [facility] in a manner consistent with CLIA requirements. This test has not been cleared or approved by the U.S. Food and Drug Administration. PBDV Patient Street Normal (applies to non-nume nicole results) [facility] PBDV Patient [facility] Normal (applies to non-numeri c results) [facility] Normal (applies to non-numer ic results) [facility] PBDV Patient [facility] Normal (applies to non-numeric results) [facility] Normal (applies to non-nume nicole results) [facility] PBDV Patient Phone [phone] Normal (applies to non-nume nicole results) [facility] PBDV Patient Race Normal (applies to non-numeri c results) [facility] PBDV Patient Ethnicity Normal (applies to non-n umeric results) [facility] PBDV Patient Occupation Normal (applies to non- numeric results) [facility] Employer Normal (applies to non-nu meric results) [facility] RESULT: [facility] PBDV Guardian Name,First Normal (applies to non -numeric results) [facility] PBDV Guardian Name,Last Normal (applies to non- numeric results) [facility] PBDV Provider Name Normal (applies to non-numer ic results) [facility] PBDV Provider Street Normal (applies to non-num olu results) [facility] PBDV Provider City Normal (applies to non-numer ic results) [facility] PBDV Provider State Normal (applies to non-nume nicole results) [facility] PBDV Provider Zip [address] Normal (applies to non-numeri c results) [facility] PBDV Provider Phone [phone] Normal (applies to non-num olu results) [facility] Phone [phone] Normal (applies to non-numeric results) [facility] Test Performed by: [place] [address] Site Head: Charly Trejo M.D. Ph.D.; CLIA# [id number] ID Date Data Source [id number] 11/18/2020 05:27:00 PM EDT [facility] Name Value Range Interpretation Code Description Data Yun rce(s) Supporting Document(s) BLOOD TYPE PATIENT A Positive Normal (applies to non-numer ic results) [facility] ANTIBODY SCREEN NEGATIVE Normal (applies to non-numeric results) [facility] ID Date Data Source [id number] 11/18/2020 04:45:00 PM EDT [facility] Name Value Range Interpretation Code Description Data Yun rce(s) Supporting Document(s) Hep C Ab-T Test Nonreactive Normal (applies to non-numeric results) [facility] ID Date Data Source [id number] 11/18/2020 04:45:00 PM EDT [facility] Name Value Range Interpretation Code Description Data Yun rce(s) Supporting Document(s) Hep Bs Ag Result T-Test Nonreactive Normal (applies to non -numeric results) [facility] ID Date Data Source [id number] 11/18/2020 04:45:00 PM EDT [facility] Name Value Range Interpretation Code Description Data Yun rce(s) Supporting Document(s) HIV 1/2 Ab p24 Ag Screen Nonreactive Normal (applies to non-numeric results) [facility] ID Date Data Source [id number] 11/18/2020 04:45:00 PM EDT [facility] Value Range Interpretation Code Description Data Yun rce(s) Supporting Document(s) Syphilis Serology Nonreactive Normal (applies to non-numer ic results) [facility] ID Date Data Source [id number] 11/18/2020 04:45:00 PM EDT [facility] Name Value Range Interpretation Code Description Data Yun rce(s) Supporting Document(s) Rubella Ab,IgG >10.0 Normal (applies to non-numeric r esults) [facility] Interpretation of Result s Less than 5.0 IU/mL - Negative for IgG antibodies to Rubella virus 5.0 - 9.9 IU/mL - Equivocal. Suggest repeat testing on new sample 10.0 IU/mL or greater - Positive for IgG antibodies to Rubella virus ID Date Data Source [id number] 11/18/2020 04:36:00 PM EDT [facility] Name Value Range Interpretation Code Description Data Yun rce(s) Supporting Document(s) Bupren Scrn,Ur wRfx LCI SO res Negative N ormal (applies to non-numeric results) [facility] Therapeutic Drug Threshold for Buprenorp medardo: 5 ng/mL All positive findings are presumptive and unconfirmed. Confirmation of positive Buprenorphine is automatically reflexed and sent to reference laboratory. Unconfirmed results must not be used for non-medical purposes (i.e. pre-employment and legal purposes) ID Date Data Source [id number] 11/18/2020 04:30:00 PM EDT [facility] Name Value Range Interpretation Code Description Data Yun rce(s) Supporting Document(s) Hemoglobin A1C % Less than 5.7% Normal (applies to non-num olu results) [facility] HBA1C: Normal: Less than 5.7% Prediabetes: 5.7% to 6.4% Diabetes: 6.5% or higher HA1C % vs Estimated Average Glucose (eAG) % eAG % eAG 6% 126 mg/dL 10% 240 mg/dL 7% 154 mg/dL 11% 269 mg/dL 8% 183 mg/dL 12% 298 mg/dL 9% 212 mg/dL Reference: [place] [employer], 2017 ID Date Data Source [id number] 11/18/2020 03:52:00 PM EDT [facility] Value Range Interpretation Code Description Data Yun rce(s) Supporting Document(s) Thyroid Stimulate Hormone TSH 0.358-3.740 No rmal (applies to non-numeric results) [facility] ID Date Data Source [id number] 11/18/2020 03:53:00 PM EDT [facility] Value Range Interpretation Code Description Data Yun rce(s) Supporting Document(s) Progesterone Normal (applies to non-numeric res ults) [facility] Progesterone Ranges: Category Range (ng/mL) Normal Females: Follicular Phase 0.21 - 1.70 Luteal Phase 2.25 - 24.20 Mid Luteal Phase 8.76 - 21.60 Post Menopausal Females <2.00 - 0.90 Females: First Trimester 11.40 - 41.0 Second Trimester 13.8 - 156.00 Third Trimester 51.4 - >200.00 ID Date Data Source [id number] 11/18/2020 03:53:00 PM EDT [facility] Value Range Interpretation Code Description Data Yun rce(s) Supporting Document(s) Beta HCG,Quantitative 3819 mIU/mL [id number] Normal (ap plies to non-numeric results) [facility] Non- Females (ages 18-62): 1-3 mIU/mL Adult Males (ages 19-67: Less than or equal to 1 mIU/mL Females: Gestational Age: 0-1 Week: 5-50 mIU/mL 1-2 Week: 50-500 mIU/mL 2-3 Weeks: 100-5,000 mIU/mL 3-4 Weeks: 500-10,000 mIU/mL 4-5 Weeks: 1,000- 50,000 mIU/mL 5-6 Weeks: 10,000-100,000 mIU/mL 6-8 Weeks: 15,000- 200,000 mIU/mL 2-3 Months: 10,000-100,000 mIU/mL 2nd Trimester: 3000- 81552 mIU/mL 3rd Trimester: 1000-28957 mIU/ml ID Date Data Source [id number] 11/18/2020 03:42:00 PM EDT [facility] Name Value Range Interpretation Code Description Data Yun rce(s) Supporting Document(s) White Blood Count 4.8-10.8 Normal (applies to non-numeri c results) [facility] Red Blood Count 3.68-5.22 Below low normal [facility] Hemoglobin 11.2-15.7 Normal (applies to non-numeric resul ts) [facility] Hematocrit 34.1-44.[address] [facility] Mean Corpuscular Volume 81-99 Normal (applies to non- numeric results) [facility] Mean Corpuscular Hemoglobin 27.0-33.0 Normal (appli es to non-numeric results) [facility] Mean Corpuscular HGB Conc 32.0-36.0 Normal (applies to no n-numeric results) [facility] Red Cell Distribution Width 11.5-14.5 Normal (appli es to non-numeric results) [facility] Platelet Count 214 X10 3/uL 130-450 Normal (applies to non-numeric results) [facility] Mean Platelet Volume 9.5-12.7 Normal (applies to non-num olu results) [facility] Imm Grans% (AUTO) 1 % 0-2 Normal (applies to non-numeri c results) [facility] Neutrophils % (AUTO) 55 % 40-75 Normal (applies to non-num olu results) [facility] Lymphocytes % (AUTO) 33 % 21-46 Normal (applies to non-num olu results) [facility] Monocytes % (AUTO) 9 % 5-12 Normal (applies to non-numer ic results) [facility] Eosinophils % (AUTO) 2 % 1-5 Normal (applies to non-num olu results) [facility] Basophils % (AUTO) 1 % 0-1 Normal (applies to non-numer ic results) [facility] Imm Grans# (AUTO) 0.0-0.5 Normal (applies to non-numeri c results) [facility] Neutrophils # (AUTO) 1.5-8.1 Normal (applies to non-num olu results) [facility] Lymphocytes # (AUTO) 1.0-3.1 Normal (applies to non-num olu results) [facility] Monocytes # (AUTO) 0.2-1.3 Normal (applies to non-numer ic results) [facility] [facility]# (AUTO) 0.0-0.5 Normal (applies to non-nume nicole results) [facility] Basophils # (AUTO) 0.0-0.1 Normal (applies to non-numer ic results) [facility] ID Date Data Source [id number] 11/11/2020 12:26:00 PM EDT [facility] Name Value Range Interpretation Code Description Data Yun rce(s) Supporting Document(s) Progesterone Normal (applies to non-numeric res ults) [facility] Progesterone Ranges: Category Range (ng/mL) Normal Females: Follicular Phase 0.21 - 1.70 Luteal Phase 2.25 - 24.20 Mid Luteal Phase 8.76 - 21.60 Post Menopausal Females <2.00 - 0.90 Females: First Trimester 11.40 - 41.0 Second Trimester 13.8 - 156.00 Third Trimester 51.4 - >200.00 ID Date Data Source [id number] 11/11/2020 12:26:00 PM EDT [facility] Name Value Range Interpretation Code Description Data Yun rce(s) Supporting Document(s) Beta HCG,Quantitative 215 mIU/mL [id number] Normal (ap plies to non-numeric results) [facility] Non- Females (ages 18-62): 1-3 mIU/mL Adult Males (ages 19-67: Less than or equal to 1 mIU/mL Females: Gestational Age: 0-1 Week: 5-50 mIU/mL 1-2 Week: 50-500 mIU/mL 2-3 Weeks: 100-5,000 mIU/mL 3-4 Weeks: 500-10,000 mIU/mL 4-5 Weeks: 1,000- 50,000 mIU/mL 5-6 Weeks: 10,000-100,000 mIU/mL 6-8 Weeks: 15,000- 200,000 mIU/mL 2-3 Months: 10,000-100,000 mIU/mL 2nd Trimester: 3000- 00238 mIU/mL 3rd Trimester: 1000-70107 mIU/ml ID Date Data Source [id number] 11/09/2020 01:14:00 PM EDT [facility] Name Value Range Interpretation Code Description Data Yun rce(s) Supporting Document(s) Progesterone Normal (applies to non-numeric res ults) [facility] Progesterone Ranges: Category Range (ng/mL) Normal Females: Follicular Phase 0.21 - 1.70 Luteal Phase 2.25 - 24.20 Mid Luteal Phase 8.76 - 21.60 Post Menopausal Females <2.00 - 0.90 Females: First Trimester 11.40 - 41.0 Second Trimester 13.8 - 156.00 Third Trimester 51.4 - >200.00 ID Date Data Source [id number] 11/09/2020 01:14:00 PM EDT [facility] Name Value Range Interpretation Code Description Data Yun rce(s) Supporting Document(s) Beta HCG,Quantitative 98 mIU/mL [id number] Normal (ap plies to non-numeric results) [facility] Non- Females (ages 18-62): 1-3 mIU/mL Adult Males (ages 19-67: Less than or equal to 1 mIU/mL Females: Gestational Age: 0-1 Week: 5-50 mIU/mL 1-2 Week: 50-500 mIU/mL 2-3 Weeks: 100-5,000 mIU/mL 3-4 Weeks: 500-10,000 mIU/mL 4-5 Weeks: 1,000- 50,000 mIU/mL 5-6 Weeks: 10,000-100,000 mIU/mL 6-8 Weeks: 15,000- 200,000 mIU/mL 2-3 Months: 10,000-100,000 mIU/mL 2nd Trimester: 3000- 40153 mIU/mL 3rd Trimester: 1000-52594 mIU/ml ID Date Data Source [id number] 10/08/2020 09:27:00 AM EDT [facility] Name Value Range Interpretation Code Description Data Yun rce(s) Supporting Document(s) Urine Culture Normal (applies to non-numeric re sults) [facility] ID Date Data Source [id number] 08/26/2020 09:09:00 PM EST [facility] Name Value Range Interpretation Code Description Data Yun rce(s) Supporting Document(s) Chlamydia,Urine Negative Normal (applies to non-numeric results) [facility] GC Urine Negative Normal (applies to non-numeric resul ts) [facility] Methodology: Second generation nucleic a kaylyn amplification. ID Date Data Source [id number] 07/10/2020 11:06:00 AM [facility] Name Value Range Interpretation Code Description Data Yun rce(s) Supporting Document(s) HSV Type 1 Ab,IgG result Negative Normal (applies to non -numeric results) [facility] HSV Type 2 Ab,IgG result Negative Normal (applies to non -numeric results) [facility] Test Performed by: [place] [address] Site Head: Charly Trejo M.D. Ph.D.; CLIA# [id number] ID Date Data Source [id number] 07/07/2020 06:32:00 PM [facility] Name Value Range Interpretation Code Description Data Yun rce(s) Supporting Document(s) Hep C Ab-T Test Nonreactive Normal (applies to non-numeric results) [facility] Hep Bs Ag Result T-Test Nonreactive Normal (applies to non -numeric results) [facility] HBCT Nonreactive Normal (applies to non-numeric resu lts) [facility] HAVM Nonreactive Normal (applies to non-numeric resu lts) [facility] ID Date Data Source [id number] 07/07/2020 06:32:00 PM EST [facility] Name Value Range Interpretation Code Description Data Yun rce(s) Supporting Document(s) Syphilis Serology Nonreactive Normal (applies to non-numer ic results) [facility] ID Date Data Source [id number] 07/07/2020 06:32:00 PM EST [facility] Name Value Range Interpretation Code Description Data Yun rce(s) Supporting Document(s) HIV 1/2 Ab p24 Ag Screen Nonreactive Normal (applies to non-numeric results) [facility] ID Date Data Source [id number] 07/10/2020 03:34:00 PM EST [facility] CHLAMYDIA/GC SOURCE: ENDOCERVICAL Name Value Range Interpretation Code Description Data Yun rce(s) Supporting Document(s) Chlam Amp Probe-Swab Negative [facility] THIS IS A STATE REPORTABLE COMMUNICABLE DISEASE. Results called 07/10/20 1529, Lilibeth Cochran (nurse) read back information to [facility] Methodology: Second generation nucleic acid amplification. ID Date Data Source [id number] 07/09/2020 04:57:00 PM EST [facility] Name Value Range Interpretation Code Description Data Yun rce(s) Supporting Document(s) AFFDNA Adrianna species Negative Normal (applies to non-n umeric results) [facility] AFFDNA Gardnerella vaginalis Negative Normal (appl ies to non-numeric results) [facility] AFFDNA Trichomonas vaginalis Negative Normal (appl ies to non-numeric results) [facility] Performed at: RN - [facility] [address] [id number] Site Head: Luda Bowles MD, Phone: [phone] ID Date Data Source [id number] 07/02/2020 11:48:00 AM EST [facility] Name Value Range Interpretation Code Description Data Yun rce(s) Supporting Document(s) Urine Culture Normal (applies to non-numeric re sults) [facility] ID Date Data Source [id number] 09/10/2020 10:01:00 PM EST [facility] Name Value Range Interpretation Code Description Data Yun rce(s) Supporting Document(s) White Blood Count 4.8-10.8 Normal (applies to non-numeri c results) [facility] Red Blood Count 3.68-5.22 Below low normal [facility] Hemoglobin 11.2-15.[address] [facility] Hematocrit 34.1-44.[address] [facility] Mean Corpuscular Volume 81-99 Normal (applies to non- numeric results) [facility] Mean Corpuscular Hemoglobin 27.0-33.0 Normal (appli es to non-numeric results) [facility] Mean Corpuscular HGB Conc 32.0-36.0 Normal (applies to no n-numeric results) [facility] Red Cell Distribution Width 11.5-14.5 Normal (appli es to non-numeric results) [facility] Platelet Count 207 X10 3/uL 130-450 Normal (applies to non-numeric results) [facility] Mean Platelet Volume 9.5-12.7 Normal (applies to non-num olu results) [facility] Imm Grans% (AUTO) 0 % 0-2 Normal (applies to non-numeri c results) [facility] Neutrophils % (AUTO) 67 % 40-75 Normal (applies to non-num olu results) [facility] Lymphocytes % (AUTO) 24 % 21-46 Normal (applies to non-num olu results) [facility] Monocytes % (AUTO) 7 % 5-12 Normal (applies to non-numer ic results) [facility] Eosinophils % (AUTO) 1 % 1-5 Normal (applies to non-num olu results) [facility] Basophils % (AUTO) 1 % 0-1 Normal (applies to non-numer ic results) [facility] Imm Grans# (AUTO) 0.0-0.5 Normal (applies to non-numeri c results) [facility] Neutrophils # (AUTO) 1.5-8.1 Normal (applies to non-num olu results) [facility] Lymphocytes # (AUTO) 1.0-3.1 Normal (applies to non-num olu results) [facility] Monocytes # (AUTO) 0.2-1.3 Normal (applies to non-numer ic results) [facility] Eosinophils# (AUTO) 0.0-0.5 Normal (applies to non-nume nicole results) [facility] Basophils # (AUTO) 0.0-0.1 Normal (applies to non-numer ic results) [facility] ID Date Data Source [id number] 09/06/2020 03:09:00 AM [facility] Name Value Range Interpretation Code Description Data Yun rce(s) Supporting Document(s) Beta HCG,Quantitative 1 mIU/mL [id number] Below low normal [facility] Non- Females (ages 18-62): 1-3 mIU/mL Adult Males (ages 19-67: Less than or equal to 1 mIU/mL Females: Gestational Age: 0-1 Week: 5-50 mIU/mL 1-2 Week: 50-500 mIU/mL 2-3 Weeks: 100-5,000 mIU/mL 3-4 Weeks: 500-10,000 mIU/mL 4-5 Weeks: 1,000- 50,000 mIU/mL 5-6 Weeks: 10,000-100,000 mIU/mL 6-8 Weeks: 15,000- 200,000 mIU/mL 2-3 Months: 10,000-100,000 mIU/mL 2nd Trimester: 3000- 03768 mIU/mL 3rd Trimester: 1000-62479 mIU/ml ID Date Data Source [id number] 06/11/2020 01:45:00 PM [facility] Name: JAVON DARBY : 1990 A ge/Sex: 29F Ordering Provider: PHI Manrique Med Rec #: [id number] Reg Status: REG REF Room #: Date of Service: 05/01/20 Report Number: [id number] cc:DEBORA Paz; PHI Manrique Send Report To: [id number] US/US Transvaginal This is a missed dictation from 05-01-20, submitted for interpretation on 06-10-20. Reason for exam: MENORRHAGIA WITH IRREGULAR CYCLE FINDINGS: Uterus measures 7.6 x 5.2 x 3.4 cm. Endometrium is within normal limits measuring 6 mm. Right ovary measures 2.7 x 2.1 x 2.0 cm. Left ovary measures 1.6 x 0.9 x 1.0 cm. Follicles present in the right ovary measuring 1 cm. IMPRESSION: Unremarkable pelvic sonogram. REPORT DICTATED BY PRATIBHA MICHAELS, REVIEWED AND SIGNED BY DR. EDEN REPORT SIGNATURE ON FILE Reported By: Yudelka Eden MD <Electronically signed by Yudelka Eden MD> 06/12/20 1022 Dictation Date/Time: 06/10/20 1643 Transcribed Date/Time: 06/11/20 1345 [employer]: [facility] Name Value Range Interpretation Code Description Data Yun rce(s) Supporting Document(s) ID Date Data Source [id number] 09/10/2020 10:01:00 PM EST [facility] Name Value Range Interpretation Code Description Data Yun rce(s) Supporting Document(s) White Blood Count 4.8-10.8 Normal (applies to non-numeri c results) [facility] Red Blood Count 3.68-5.22 Below low normal [facility] Hemoglobin 11.2-15.[address] [facility] Hematocrit 34.1-44.[address] [facility] Mean Corpuscular Volume 81-99 Normal (applies to non- numeric results) [facility] Mean Corpuscular Hemoglobin 27.0-33.0 Normal (appli es to non-numeric results) [facility] Mean Corpuscular HGB Conc 32.0-36.0 Normal (applies to no n-numeric results) [facility] Red Cell Distribution Width 11.5-14.5 Normal (appli es to non-numeric results) [facility] Platelet Count 207 X10 3/uL 130-450 Normal (applies to non-numeric results) [facility] Mean Platelet Volume 9.5-12.7 Normal (applies to non-num olu results) [facility] Imm Grans% (AUTO) 0 % 0-2 Normal (applies to non-numeri c results) [facility] Neutrophils % (AUTO) 67 % 40-75 Normal (applies to non-num olu results) [facility] Lymphocytes % (AUTO) 24 % 21-46 Normal (applies to non-num olu results) [facility] Monocytes % (AUTO) 7 % 5-12 Normal (applies to non-numer ic results) [facility] Eosinophils % (AUTO) 1 % 1-5 Normal (applies to non-num olu results) [facility] Basophils % (AUTO) 1 % 0-1 Normal (applies to non-numer ic results) [facility] Imm Grans# (AUTO) 0.0-0.5 Normal (applies to non-numeri c results) [facility] Neutrophils # (AUTO) 1.5-8.1 Normal (applies to non-num olu results) [facility] Lymphocytes # (AUTO) 1.0-3.1 Normal (applies to non-num olu results) [facility] Monocytes # (AUTO) 0.2-1.3 Normal (applies to non-numer ic results) [facility] Eosinophils# (AUTO) 0.0-0.5 Normal (applies to non-nume nicole results) [facility] Basophils # (AUTO) 0.0-0.1 Normal (applies to non-numer ic results) [facility] Procedure Social History No Information
--- NOTE | 2021-05-29 02:50 | HPEPDOC ---
Obstetrical History & Physical General Date of Admission May 29, 2021 at 02:03 History of Present Illness Chief Complaint: LOF, pre-term Information Provided By: Patient Age: 30 : 6 Term: 1 Pre-term: 1 Abortions: 3 Livin Care Care: Good Care Dating Final EDC: Jul 18, 2021 Final EDC by: LMP EGA at Admission: 32 (+6) Antepartum Course Pre- weight (lbs.): 177 Admission Weight (lbs.): 207 Past Medical History Past Obstetrical History #1: Past Obstetrical History: Primgravida (2014) Type of Delivery: Ceserean section (4hr pushing, arrest of descent) Sex of : Male (9#8) Complications: Yes Past Obstetrical History #2: Past Obstetrical History: Multigravida (2017) Type of Delivery: Spontaneous Vaginal Del. () Sex of Infant: Male (4#2) Complications: Yes (PPROM @ 31 wks, ) TIRE RETREADER History: Spontaneous (x3) Past Medical History Surgical History: section, Gallbladder Family History Significant Family History: Heart disease, Other (liver disease) Social History Marital Status: Single Family situation: Spouse/partner home Psychosocial History: No pertinent psych hx * Smoker: non-smoker Alcohol: Denies Drugs: denies Physical Examination Physical Examination GENERAL: Alert and oriented times three. BREAST: . ABDOMEN: Gravid and non-tender to touch. FETUS: Is vertex (VTX) by sonogram and SVE performed by Dr Tubbs @ [facility]. Clear f luid draining per vagina HEART RATE: Regular rate and rhythm. LUNGS: Clear to auscultation (CTA). EXTREMITIES: No edema. No clonus. Deep tendon reflexes (DTRs) + 2. Pertinent Laboratoy Data Blood Type: A+ RBC Antibody Screen: Negative HIV: Negative Hepatitis B: Negative Hepatitis C: Negative Rapid Plasma Reagin: Nonreactive Rubella: Immune Chlamydia/Gonorrhea: Negative Group B Streptococcus: Unknown Glucose Tolerance Test: 120 Anatomy Ultrasound Ultrasound Date: Feb 17, 2021 Normal Anatomy: Yes (incomplete) Placenta Previa: Yes (marginal) Other Ultrasounds 03/28/21 Remainder anatomy WNL. No previa. ELLIOTT 15.1 04/20/21 Mucous in cervical canal, no definite funneling. ELLIOTT 18.96, cervix 24.7mm 05/03/2021 ELLIOTT 19.9 EFW 1538gm 82%, no previa, 8/8 Steroid Therapy Steroid Therapy: Yes (initiated tonight) Vaginal Examination Dilation: None (per Dr Tubbs) Presentation: Cephalic presentation Assessment Heart Rate (FHR): 135 Variability: Moderate Accelerations: Positive Tocometer Contractions: No Assessment/Plan Assessment Landy is a 30-year-old (G)6 para (P)1-1-3-2 at 32+6 weeks by 7-week ultrasound. Presents to Labor and Delivery (L&D) from [facility] w here she was confirmed to be ruptured since 1900 05/28/2021. Vaginal exam deferred here as was performed by previous provider. Fetus is quite active. Fluids per vagina remain clear. Plan Admit and orient per consult Dr Humphries Clinical Trial Manager and consent. Diet: regular Group B Streptococcus (GBS) obtained. Latency antibiotics started per Up to Date. Labs and intravenous (IV) per unit protocol. Discussed betamethasone injections and close observation with the goal of maintaining gestation till at least 34 weeks. Ms Stockton would prefer a TOLAC for delivery but agrees to repeat if indicated. Carmen Conte CNM May 29, 2021 02:17
[2021-05-29] MEDS ORDERED: PRENTAB9 PO (02:59)
[2021-05-29] MEDS ORDERED: IRON27TA2 PO (02:59)
[2021-05-29] MEDS ORDERED: FOLI400T13 PO (02:59)
[2021-05-29] MEDS ORDERED: HOME MED LIST COMPLETE! XX SCH ×3 (03:00→21:15)
[2021-05-29] MEDS ORDERED: AMPICILLIN SOD 2 GM in APPROPRIATE DILUENT 20 ML IV SCH (03:30)
[2021-05-29] MEDS: BETAMETHASONE SOLUSPAN 6MG/ML 5ML VIAL (J0702 PER 3MG) IM SCH (04:07)
[2021-05-29 04:37] LABS: AMPHETAMINES URINE REFLEX NEGATIVE (NEGATIVE); BARBITURATES URINE REFLEX NEGATIVE (NEGATIVE); BENZODIAZEPINES URINE REFLEX NEGATIVE (NEGATIVE); CANNABINOIDS URINE REFLEX NEGATIVE (NEGATIVE); COCAINE METABOLITE URINE REFLE NEGATIVE (NEGATIVE); METHADONE URINE REFLEX NEGATIVE (NEGATIVE); OPIATES URINE REFLEX NEGATIVE (NEGATIVE); PHENCYCLIDINE URINE REFLEX NEGATIVE (NEGATIVE)
[2021-05-29 05:56] LABS: GC DNA AMPLIFICATION NEGATIVE (NEGATIVE)
[2021-05-29] MEDS: LR 1,000 ML IV SCH ×2 (07:03→15:31)
[2021-05-29] MEDS ORDERED: FERR325T19 (08:17)
[2021-05-29] MEDS ORDERED: OMEP-357 (08:17)
[2021-05-29] MEDS: PRENATAL VITAMINS CHEWABLE TABLET PO SCH (08:28)
[2021-05-29] MEDS: AMPICILLIN SOD 2 GM in APPROPRIATE DILUENT 20 ML IV SCH ×2 (13:05→18:57)
[2021-05-29] MEDS ORDERED: ZOFR4TAB16 PO (21:12)
[2021-05-29] MEDS: DOCUSATE SODIUM 100MG CAPSULE PO PRN (22:10)
[2021-05-30] MEDS: AMPICILLIN SOD 2 GM in APPROPRIATE DILUENT 20 ML IV SCH ×4 (00:42→19:23)
[2021-05-30] MEDS: LR 1,000 ML IV SCH (00:43)
[2021-05-30 02:00] VITALS: BP 100/52
[2021-05-30] MEDS: BETAMETHASONE SOLUSPAN 6MG/ML 5ML VIAL (J0702 PER 3MG) IM SCH (04:31)
[2021-05-30 06:00] VITALS: BP 95/50
[2021-05-30] MEDS: PRENATAL VITAMINS CHEWABLE TABLET PO SCH (08:11)
[2021-05-30 08:43] LABS: HEMATOCRIT 29.7 % (36.0-47.0); HEMOGLOBIN 9.4 g/dl (12.0-15.5); MEAN CORPUSCULAR HEMOGLOBIN 30.1 pg (27.0-33.0); MEAN CORPUSCULAR HGB CONC 31.6 g/dl (32.0-36.5); MEAN CORPUSCULAR VOLUME 95.2 fl (80.0-96.0); PLATELET COUNT, AUTOMATED 167 10^3/uL (150-450); RED BLOOD COUNT 3.12 10^6/uL (4.00-5.40); WHITE BLOOD COUNT 9.7 10^3/uL (4.0-10.0)
[2021-05-30 09:32] LABS: LYMPHOCYTES 8 % (16-44); MONOCYTES 4 % (0-5); MYELOCYTES 3 % (0-0); NEUTROPHILS 82 % (28-66)
[2021-05-30 09:34] LABS: PLATELET ESTIMATE NORMAL (NORMAL); TEAR DROP CELLS 1+
[2021-05-30 10:00] VITALS: BP 123/57
--- NOTE | 2021-05-30 11:47 | IPNPDOC ---
Text Note Date of Service The patient was seen on 05/30/21. NOTE HD#2 S: 30-year-old at 33 weeks 0 days doing well without any issues. Has continued to leak clear fluid. Has occasional contractions. Denies any vaginal bleeding reports. Reports active movements. O: Vital signs stable afebrile General: Well-appearing no acute distress Abdomen: Gravid nontender Reactive tracing Assessment: 30-year-old G6, P2 at 33 weeks 0 days with PP ROMcurrently stable. Complete latency antibiotics. She is status post steroids for lung maturity Reassuring statuscontinue routine antepartum care. Induction of labor/ repeat section at 34 weeks gestation Gianna Humphries MD VS,Varun, I+O VS, Varun I+O Laboratory Tests 05/30/21 08:05 Vital Signs Date Time Temp Pulse Resp B/P (MAP) Pulse Ox O2 Delivery O2 Flow Rate FiO2 05/30/21 10:00 97.1 84 17 123/57 (79) 94 Room Air I&O- Last 24 Hours up to 6 AM 05/30/21 06:00 Intake Total 2320 ml Output Total 1800 ml Balance 520 ml GIANNA HUMPHRIES MD. May 30, 2021 11:47
[2021-05-30 14:00] VITALS: BP 119/56
[2021-05-30 17:54] VITALS: BP 116/55
[2021-05-30] MEDS: HEPARIN SOD (PORCINE) 5000UNITS/ML 1ML VIAL/SYRINGE SQ SCH (21:00)
[2021-05-30] MEDS: DOCUSATE SODIUM 100MG CAPSULE PO PRN (21:07)
[2021-05-30 22:00] VITALS: BP 96/52
[2021-05-31] MEDS: AMPICILLIN SOD 2 GM in APPROPRIATE DILUENT 20 ML IV SCH (00:51)
[2021-05-31 02:00] VITALS: BP 93/55
[2021-05-31 06:00] VITALS: BP 95/54
[2021-05-31] MEDS: PRENATAL VITAMINS CHEWABLE TABLET PO SCH (08:37)
[2021-05-31 10:00] VITALS: BP 135/58
--- NOTE | 2021-05-31 12:00 | IPNPDOC ---
Text Note Date of Service The patient was seen on 05/31/21. NOTE Subjective: Lanyd is a 30-year-old female who is a at 33.1 weeks gestation with an ARIANNE of 07/18/21. She was transported from [facility] with PPROM. Her has been complicated by a prior section followed by a . She desires TOLAC. She is betamethasone complete and has finished IV antibiotics and is now being started on Latency antibiotics. She denies contra ctions or vaginal bleeding. Reports vaginal fluid continues to remain clear. Objective: VS: see below. FHR: 140, moderate variability, positive accelerations, no decelerations. [place]: no contractions. General: Awake and alert. Sitting up on partner's bed. Respiratory: regular rate and rhythm. Breathing comfortably on room air. Abdomen: soft and not tender to palpation. Assessment: IUP at 33.1 weeks gestation, PPROM, beta complete, prior section Plan: She has finished her IV antibiotics and started on PO latency antibiotics- Cephalexin 500 mg four times per day for 5 days. Iron started 3 times per day for anemia. SQ Heparin started. Discussed rationale for this. The plan of care was discussed for induction of labor on Monday. Patient wants to try for a TOLAC. Reviewed risks, benefits, and alternatives, especially if having to be induced. Patient instructed to let staff know if she has any changes including: changes to color of fluid, vaginal bleeding, regular contractions, decreased movement, and signs of infection. VS,Fishbone, I+O VS, Fishbone, I+O Vital Signs Date Time Temp Pulse Resp B/P (MAP) Pulse Ox O2 Delivery O2 Flow Rate FiO2 05/31/21 10:00 97.5 89 18 135/58 (83) 05/31/21 02:00 95 Room Air I&O- Last 24 Hours up to 6 AM 05/31/21 06:00 Intake Total 1200 ml Output Total 2850 ml Balance -1650 ml RAJANI MISHRA CNM May 31, 2021 12:00
[2021-05-31 14:02] VITALS: BP 104/52
[2021-05-31] MEDS: FERROUS GLUCONATE 324 MG TAB PO SCH ×2 (14:16→21:00)
[2021-05-31] MEDS: CEPHALEXIN 500 MG CAP PO SCH ×2 (14:16→23:45)
[2021-05-31] MEDS: HEPARIN SOD (PORCINE) 5000UNITS/ML 1ML VIAL/SYRINGE SQ SCH ×2 (14:18→23:35)
[2021-05-31 18:23] VITALS: BP 104/57
[2021-05-31] MEDS: DOCUSATE SODIUM 100MG CAPSULE PO PRN (21:00)
[2021-05-31 22:00] VITALS: BP 114/51
[2021-06-01 02:00] VITALS: BP 102/50
[2021-06-01 06:00] VITALS: BP 107/59
[2021-06-01] MEDS: CEPHALEXIN 500 MG CAP PO SCH ×3 (06:00→17:16)
[2021-06-01] MEDS: FERROUS GLUCONATE 324 MG TAB PO SCH ×3 (08:17→21:25)
[2021-06-01] MEDS: PRENATAL VITAMINS CHEWABLE TABLET PO SCH (08:17)
[2021-06-01] MEDS: DOCUSATE SODIUM 100MG CAPSULE PO PRN (08:17)
[2021-06-01] MEDS: HEPARIN SOD (PORCINE) 5000UNITS/ML 1ML VIAL/SYRINGE SQ SCH ×2 (08:18→21:26)
--- NOTE | 2021-06-01 08:25 | IPNPDOC ---
Text Note Date of Service The patient was seen on 06/01/21. NOTE S: No pain or contractions. Still leaking fluid. O: AVSS NAD Abd: NT, soft, gravid FHT: cat. I toco: None ext: NT A/P 30 yo female at 33 2/7 weeks with PPROM Continue latency antibiotics Continue SQ Heparin Continue surveillance Continue modified rest in hospital Plan induction at 34 weeks Risks of discussed VS,Fishbone, I+O VS, Fishbone, I+O Vital Signs Date Time Temp Pulse Resp B/P (MAP) Pulse Ox O2 Delivery O2 Flow Rate FiO2 06/01/21 08:20 98.4 06/01/21 06:00 83 6 107/59 (75) 97 Room Air I&O- Last 24 Hours up to 6 AM 06/01/21 06:00 Intake Total 360 ml Output Total 1450 ml Balance -1090 ml FELA GAINES MD Jun 01, 2021 08:25
[2021-06-01 10:00] VITALS: BP 100/54
[2021-06-01 14:00] VITALS: BP 109/54
[2021-06-01 17:55] VITALS: BP 108/57
[2021-06-01 22:00] VITALS: BP 111/59
[2021-06-02] MEDS: CEPHALEXIN 500 MG CAP PO SCH ×4 (00:11→17:29)
[2021-06-02 02:00] VITALS: BP 102/51
[2021-06-02 05:54] VITALS: BP 107/50
[2021-06-02 07:44] LABS: HEMATOCRIT 31.6 % (36.0-47.0); MEAN CORPUSCULAR HEMOGLOBIN 29.7 pg (27.0-33.0); MEAN CORPUSCULAR HGB CONC 31.6 g/dl (32.0-36.5); MEAN CORPUSCULAR VOLUME 93.8 fl (80.0-96.0); PLATELET COUNT, AUTOMATED 217 10^3/uL (150-450); RED BLOOD COUNT 3.37 10^6/uL (4.00-5.40); WHITE BLOOD COUNT 14.6 10^3/uL (4.0-10.0)
[2021-06-02] MEDS: FERROUS GLUCONATE 324 MG TAB PO SCH ×3 (08:35→21:00)
[2021-06-02] MEDS: HEPARIN SOD (PORCINE) 5000UNITS/ML 1ML VIAL/SYRINGE SQ SCH ×2 (08:36→21:15)
[2021-06-02] MEDS: PRENATAL VITAMINS CHEWABLE TABLET PO SCH (08:36)
[2021-06-02] MEDS: DOCUSATE SODIUM 100MG CAPSULE PO PRN (08:44)
[2021-06-02 10:00] VITALS: BP 124/56
[2021-06-02 14:00] VITALS: BP 117/56
[2021-06-02] MEDS: ACETAMINOPHEN TAB 650MG DOSE (2X325MG) PO PRN (15:14)
[2021-06-02 15:36] LABS: BASO # 0.1 10^3/uL (0.0-0.2); BASO % 0.6 % (0.0-1.0); EOS # 0.1 10^3/uL (0.0-0.5); EOS % 0.4 % (0.0-3.0); HEMATOCRIT 33.2 % (36.0-47.0); HEMOGLOBIN 10.7 g/dl (12.0-15.5); LYMPH # 1.4 10^3/uL (1.5-5.0); LYMPH % 8.7 % (24.0-44.0); MEAN CORPUSCULAR HEMOGLOBIN 30.1 pg (27.0-33.0); MEAN CORPUSCULAR HGB CONC 32.2 g/dl (32.0-36.5); MEAN CORPUSCULAR VOLUME 93.3 fl (80.0-96.0); MONO % 6.4 % (2.0-8.0); NEUTROPHILS # 12.3 10^3/uL (1.5-8.5); NEUTROPHILS % 78.8 % (36.0-66.0); PLATELET COUNT, AUTOMATED 229 10^3/uL (150-450); RED BLOOD COUNT 3.56 10^6/uL (4.00-5.40); WHITE BLOOD COUNT 15.6 10^3/uL (4.0-10.0)
[2021-06-02 16:55] VITALS: BP 118/60
[2021-06-02] MEDS: OMEPRAZOLE 20 MG CAP PO SCH (18:48)
[2021-06-02 21:56] VITALS: BP 118/58
[2021-06-03] MEDS: CEPHALEXIN 500 MG CAP PO SCH ×4 (00:44→18:00)
[2021-06-03 02:03] VITALS: BP 107/49
[2021-06-03 06:06] VITALS: BP 105/55
[2021-06-03] MEDS: ACETAMINOPHEN TAB 650MG DOSE (2X325MG) PO PRN ×3 (06:46→20:42)
[2021-06-03] MEDS: HEPARIN SOD (PORCINE) 5000UNITS/ML 1ML VIAL/SYRINGE SQ SCH ×2 (09:50→20:39)
[2021-06-03] MEDS: DOCUSATE SODIUM 100MG CAPSULE PO PRN ×2 (09:50→20:38)
[2021-06-03] MEDS: PRENATAL VITAMINS CHEWABLE TABLET PO SCH (09:50)
[2021-06-03] MEDS: FERROUS GLUCONATE 324 MG TAB PO SCH ×3 (09:50→21:00)
[2021-06-03] MEDS: OMEPRAZOLE 20 MG CAP PO SCH (09:50)
[2021-06-03 10:00] VITALS: BP 105/52
--- NOTE | 2021-06-03 12:48 | IPNPDOC ---
Text Note Date of Service The patient was seen on 06/03/21. NOTE HD#6 S: 30-year-old at 33 weeks 4 days doing well without any issues. Has continued to leak clear fluid. Has occasional contractions. Has had headaches controlled with Tylenol. Denies any vaginal bleeding reports. Reports active movements. O: Vital signs stable afebrile General: Well-appearing no acute distress Abdomen: Gravid nontender Reactive tracing Assessment: 30-year-old G6, P2 at 33 weeks 4 days with PP ROMcurrently stable. Reassuring statuscontinue routine antepartum care. Induction of labor/repeat section at 34 weeks gestation Gianna Humphries MD VS,Varun, I+O VS, Varun I+O Laboratory Tests 06/02/21 15:18 Vital Signs Date Time Temp Pulse Resp B/P (MAP) Pulse Ox O2 Delivery O2 Flow Rate FiO2 06/03/21 12:00 97.5 06/03/21 10:00 95 18 105/52 (69) 99 06/03/21 06:06 Room Air I&O- Last 24 Hours up to 6 AM 06/03/21 06:00 Output Total 1200 ml Balance -1200 ml GIANNA HUMPHRIES MD. Jun 03, 2021 12:48
[2021-06-03 14:00] VITALS: BP 112/55
[2021-06-03 18:08] VITALS: BP 106/51
[2021-06-03 21:54] VITALS: BP 121/57
[2021-06-04] VITALS (11 sets, daily range): BP systolic 98–152; BP diastolic 54–74
[2021-06-04] MEDS: CEPHALEXIN 500 MG CAP PO SCH ×4 (00:27→18:00)
[2021-06-04] MEDS ORDERED: FIORICET TAB PO PRN (00:40)
[2021-06-04] MEDS ORDERED: SODIUM CHLORIDE NASAL 0.65% SPRAY BTL (OCEAN) PRN (09:00)
--- NOTE | 2021-06-04 09:01 | IPNPDOC ---
Text Note Date of Service The patient was seen on 06/04/21. NOTE Progress "Tired of being in bed" Complaints of dry air. Humidifier not helping. Denies contractions. Reports fluid remains clear Afebrile, normotensive Reassuring monitoring Repeat CBC ordered. Sono ordered Plan IOL 34 wks VS,Fishbone, I+O VS, Fishbone, I+O Vital Signs Date Time Temp Pulse Resp B/P (MAP) Pulse Ox O2 Delivery O2 Flow Rate FiO2 06/04/21 08:00 98.8 06/04/21 06:15 92 18 100/57 (71) 97 Room Air Carmen Conte CNM Jun 04, 2021 08:59
[2021-06-04] MEDS: FERROUS GLUCONATE 324 MG TAB PO SCH ×2 (09:06→16:03)
[2021-06-04] MEDS: OMEPRAZOLE 20 MG CAP PO SCH (09:06)
[2021-06-04] MEDS: PRENATAL VITAMINS CHEWABLE TABLET PO SCH (09:06)
[2021-06-04] MEDS: HEPARIN SOD (PORCINE) 5000UNITS/ML 1ML VIAL/SYRINGE SQ SCH ×2 (09:12→20:04)
[2021-06-04 09:30] LABS: HEMATOCRIT 33.9 % (36.0-47.0); HEMOGLOBIN 10.9 g/dl (12.0-15.5); MEAN CORPUSCULAR HEMOGLOBIN 29.9 pg (27.0-33.0); MEAN CORPUSCULAR HGB CONC 32.2 g/dl (32.0-36.5); MEAN CORPUSCULAR VOLUME 93.1 fl (80.0-96.0); PLATELET COUNT, AUTOMATED 261 10^3/uL (150-450); RED BLOOD COUNT 3.64 10^6/uL (4.00-5.40); WHITE BLOOD COUNT 20.5 10^3/uL (4.0-10.0)
--- NOTE | 2021-06-04 10:03 | REP ---
INDICATION: PPROM, growth, fluid. COMPARISON: None. TECHNIQUE: Transabdominal scanning FINDINGS: Multiple ultrasonographic images of the gravid uterus shows a single living intrauterine gestation in the cephalic presentation. Doppler interrogation of the heart shows a heart rate of 130 beats per minute. The placenta is anterior. Secondary to the low position of the head an accurate cervical length measurement could not be obtained. The subjective amniotic fluid volume is decreased. The calculated amniotic fluid index is 3.9 within expected range of 8.1-24.8. Doppler interrogation of the umbilical artery shows an A\B ratio of 2.70. This is within the normal range. BPD: 8 cm 32 weeks 2 days HC: 30.2 cm 33 weeks 4 days AC: 28.3 cm 32 weeks 2 days FL: 6.6 cm 34 weeks 1 day The estimated weight is 2088 g which is at the 19th percentile IMPRESSION: Single living intrauterine gestation as described above with an estimated gestational age of 33 weeks 1 day via composite criteria and an estimated date of delivery of 07/22/2021 by today's exam. There is oligohydramnios. <Electronically signed by Tanvir Garland > 06/04/21 0974
[2021-06-04] MEDS: ACETAMINOPHEN TAB 650MG DOSE (2X325MG) PO PRN ×2 (14:23→20:04)
--- NOTE | 2021-06-04 15:13 | IPNPDOC ---
Text Note Date of Service The patient was seen on 06/04/21. NOTE Progress Pt reports increased pelvis pressure. Denies contractions Cat I tracing, no UC on monitor Abdomen soft, nontender Pt status reviewed with Dr Castillo. No change in plan at this time. VS,Fishbone, I+O VS, Fishbone, I+O Laboratory Tests 06/04/21 09:05 Vital Signs Date Time Temp Pulse Resp B/P (MAP) Pulse Ox O2 Delivery O2 Flow Rate FiO2 06/04/21 14:00 98.7 95 18 122/56 (78) 96 Room Air Carmen Conte CNM Jun 04, 2021 15:13
[2021-06-04] MEDS: DOCUSATE SODIUM 100MG CAPSULE PO PRN (16:09)
[2021-06-04 16:20] LABS: APPEARANCE, URINE HAZY (CLEAR); BACTERIA, URINE AUTO NEGATIVE (NEGATIVE); BILIRUBIN, URINE AUTO NEGATIVE (NEGATIVE); BLOOD, URINE BLOOD 1+ (NEGATIVE); COLOR, URINE YELLOW (YELLOW); GLUCOSE, URINE (UA) AUTO NEGATIVE (NEGATIVE); KETONE, URINE AUTO NEGATIVE (NEGATIVE); LEUKOCYTE ESTERASE, URINE AUTO TRACE (NEGATIVE); MUCUS, URINE SMALL (NEGATIVE); NITRITE, URINE AUTO NEGATIVE (NEGATIVE); PROTEIN, URINE AUTO 1+ mg/dL (NEGATIVE); RBC, URINE AUTO 6 /HPF (0-3); SPECIFIC GRAVITY URINE AUTO 1.018 (1.002-1.035); SQUAMOUS EPITHELIAL CELL UR AU 3 /HPF (0-6); UROBILINOGEN, URINE AUTO 0.2 mg/dL (0.0-2.0); WBC, URINE AUTO 8 /HPF (0-3)
[2021-06-04] MEDS ORDERED: SLF 3 ML SYR IV PRN (16:35)
[2021-06-04] MEDS ORDERED: OXYTOCIN 30 UNITS IN 0.9% NaCl 500ML IV BAG (J2590) As Ordered ONE (21:19)
[2021-06-04] MEDS ORDERED: DIBUCAINE 1% OINTMENT 30GM TOP PRN (21:35)
[2021-06-04] MEDS ORDERED: METHYLERGONOVINE MALEATE 0.2 MG TAB PO PRN (21:35)
[2021-06-04] MEDS ORDERED: IBUPROFEN 600MG TAB PO PRN (21:35)
[2021-06-04] MEDS ORDERED: RHOGAM 300 MCG (1500 IU) INJ (J2790) IM SCH (21:35)
[2021-06-04] MEDS ORDERED: DOCUSATE SODIUM 100MG CAPSULE PO PRN (21:35)
[2021-06-04] MEDS ORDERED: ACETAMINOPHEN TAB 650MG DOSE (2X325MG) PO PRN (21:35)
[2021-06-04] MEDS ORDERED: MEASLES,MUMPS,RUBELLA VACCINE INJ (MMR-II) (90707) SC SCH (21:35)
--- NOTE | 2021-06-04 21:40 | DNPDOC ---
[facility] Delivery Note Delivery Note DATE OF DELIVERY: June 04, 2021 PREDELIVERY DIAGNOSIS: 33-5/7 weeks' gestation, labor and premature rupture membranes, . POST DELIVERY DIAGNOSIS: Delivered. PROCEDURE: Spontaneous vaginal delivery. WELL LOGGING OPERATOR MUD ANALYSIS: Dr. Fela Gaines MD ANESTHESIA: None. ESTIMATED BLOOD LOSS: 200 mL. FINDINGS: 4 pound 10 ounce female infant, Score 8/9. DELIVERY SUMMARY: Patient is a 30-year-old 6 now para 1-2-3-3 female who was hospital day #7 for premature rupture membranes. She developed rapidly increasing lower abdominal pains. She had a low-grade temperature of 100.8 F. I was summoned to the bedside where the patient was noted to be completely dilated and the vertex was a +2 station. After pushing for 2 contractions she had spontaneous vaginal delivery of a viable female infant. There was no nuchal cord. The shoulders delivered with ease. The cord was doubly clamped and cut. The infant was handed off to waiting NICU team. The placenta delivered spontaneously and appeared to be intact. Good hemostasis was noted. There were no vaginal lacerations present. No sponges were utilized during the delivery. FELA GAINES MD Jun 04, 2021 21:40
[2021-06-04] MEDS ORDERED: SLF 3 ML SYR IV SCH (22:00)
[2021-06-04] MEDS: IBUPROFEN 800 MG TAB PO PRN (22:29)
[2021-06-05 02:00] VITALS: BP 106/59
[2021-06-05 06:00] VITALS: BP 114/65
[2021-06-05] MEDS: ACETAMINOPHEN 500 MG TAB PO PRN ×2 (06:39→12:58)
[2021-06-05] MEDS: PRENATAL VITAMINS CHEWABLE TABLET PO SCH (09:45)
[2021-06-05 10:08] VITALS: BP 104/59
--- NOTE | 2021-06-05 11:12 | IPNPDOC ---
Text Note Date of Service The patient was seen on 06/05/21. NOTE S: no complaints O: AVSS NAD Abd: NT, FF ext: NT A/P s/p at 33 5/7 weeks, PPD#1 routine PP care baby in NICU VS,Fishbone, I+O VS, Fishbone, I+O Vital Signs Date Time Temp Pulse Resp B/P (MAP) Pulse Ox O2 Delivery O2 Flow Rate FiO2 06/05/21 10:08 96.5 91 17 104/59 (74) 94 Room Air I&O- Last 24 Hours up to 6 AM 06/05/21 06:00 Output Total 400 ml Balance -400 ml FELA GAINES MD Jun 05, 2021 11:12
[2021-06-05 14:00] VITALS: BP 92/58
[2021-06-05] MEDS: IBUPROFEN 800 MG TAB PO PRN (14:32)
[2021-06-05 17:34] VITALS: BP 126/58
[2021-06-05 22:00] VITALS: BP 130/68
[2021-06-06 02:00] VITALS: BP 138/80
[2021-06-06 06:00] VITALS: BP 119/78
[2021-06-06] MEDS: PRENATAL VITAMINS CHEWABLE TABLET PO SCH (08:47)
[2021-06-06] MEDS: IBUPROFEN 800 MG TAB PO PRN (08:47)
[2021-06-06] MEDS ORDERED: ACET-683 PO (09:26)
[2021-06-06] MEDS ORDERED: IBUP80TA PO (09:26)
[2021-06-06 10:01] VITALS: BP 117/73
[2021-06-06] MEDS: ACETAMINOPHEN 500 MG TAB PO PRN (13:27)
== END 2021-06-06 13:30 | disposition home or self-care (01) | DRG 560 ==
LOC: M LDO 01:49 → MERGE 02:03 → M LDI 02:03 → M OBS 20:30
PROVIDERS: ADMIT Advanced Practice Midwife; ATTEND Specialist
PROC: 10E0XZZ Delivery of Products of Conception, External Approach (ICD-10-PCS; principal; 2021-06-04)
DX: O42.113 Preterm premature rupture of membranes, onset of labor more than 24 hours following rupture, third trimester (principal); O60.14X0 Preterm labor third trimester with preterm delivery third trimester, not applicable or unspecified; Z3A.32 32 weeks gestation of pregnancy; O34.211 Maternal care for low transverse scar from previous cesarean delivery; Z37.0 Single live birth